=== PATIENT | male | born 1935 | race Caucasian/White ===

== ENCOUNTER 2018-12-01 13:08 | Inpatient (IN) | payer MEDICARE, BC ==
[2018-12-01] MEDS ORDERED: LIDOCAINE 1% INJ 10MG/ML (20 ML MDV) SQ ONE (13:30)
[2018-12-01] MEDS ORDERED: fentaNYL (PF) 50 MCG/ML 2 ML AMP IV ONE (13:30)
[2018-12-01] MEDS ORDERED: MIDAZOLAM 2 MG/2 ML VIAL IV ONE (13:32)
[2018-12-01] MEDS ORDERED: VERAPAMIL SYRINGE (5 MG/10 ML) INTRAARTER ONE (13:32)
[2018-12-01] MEDS ORDERED: BIVALIRUDIN BOLUS 250 MG/50 ML IV ONE ×2 (13:40→13:46)
[2018-12-01] MEDS ORDERED: CLOPIDOGREL 75 MG TAB PO ONE (13:44)
[2018-12-01] MEDS ORDERED: BIVALIRUDIN 250 MG in SODIUM CHLORIDE 0.9% 50 ML IV ONE (13:46)
[2018-12-01] MEDS ORDERED: IV FLUID CONTINUATION 1,000 ML IV ONE (13:48)
[2018-12-01] MEDS ORDERED: NITROGLYCERIN 1000MCG/10ML SYRINGE INTRACORON ONE (13:50)
[2018-12-01] MEDS ORDERED: IOPAMIDOL-370 100ML BTL INJ ONE ×2 (13:56→14:01)
[2018-12-01] MEDS ORDERED: MAG HYDROX/AL HYDROX/SIMETH 30 ML CUP PO PRN (14:19)
[2018-12-01] MEDS ORDERED: ZOLPIDEM 5 MG TAB PO PRN (14:19)
[2018-12-01] MEDS ORDERED: RX INFO: IV CONTRAST WAS GIVEN 1 EACH MISC MISCELLANE PRN (14:19)
[2018-12-01] MEDS ORDERED: NITROGLYCERIN SL TABS 0.4 MG TAB SUBLINGUAL PRN (14:19)
[2018-12-01] MEDS ORDERED: ATROPINE SULFATE 0.1 MG/ML 10ML SYRINGE IV PRN (14:19)
[2018-12-01 14:28] LABS: Glucose,Whole Blood 94 mg/dL (75-99)
[2018-12-01] MEDS ORDERED: SODIUM CHLORIDE 0.9% 1,000 ML IV SCH (14:30)
[2018-12-01 15:28] VITALS: BMI 25.1
--- NOTE | 2018-12-01 16:00 | CC ---
CARDIAC CATHETERIZATION REPORT Mr. Lenz is an 83-year-old male with a known history of hypertension who presented to [facility] with symptoms of chest discomfort and EKG changes anteriorly with mild elevation of troponin, consistent with non ST-segment elevation myocardial infarction. The patient has mild element of dementia. I had a long discussion in the morning with him and his daughter regarding the options of conservative versus aggressive approach. After our consultation with the family, the daughter decided to proceed with her intervention approach. In view of that, he was transferred to [facility] to undergo cardiac catheterization and angioplasty and stenting if needed. The procedures, risks and complication were discussed with the patient and his family. They were in full understanding and agreement. PROCEDURE: Patient was brought to the paving and surfacing labourer in a fasting semi-sedated state after receiving fentanyl and Benadryl and achieving moderate conscious sedated state. Using Xylocaine anesthesia and Seldinger technique, a 6-Yemeni sheath was introduced in the right radial artery. Selective right and left coronary angiography was performed using 5- Yemeni 3 and half bend right and left Mariama catheter and 6-Yemeni FL 3.5 guiding catheter. Images of the coronary arteries were obtained. The right Mariama catheter was used to cross the aortic valve and left ventricular end-diastolic pressure was calculated. Following that catheter and following the angioplasty, the catheter and sheath were removed. Hemostasis was obtained with deployment of an TR band. There was no immediate complication. Patient is returned to his room in stable condition. FINDINGS: FLUOROSCOPY: There was calcification involving the left anterior descending artery. CORONARY ANGIOGRAPHY: 1. Left main: This is a short size vessel bifurcating left circumflex, left anterior descending artery, left main coronary artery has no evidence of high-grade stenosis. 2. Left anterior descending artery: This is a large-sized vessel reaching toward the apex, tapers down distal third, giving rise to 2 diagonal branches. Right after the takeoff of the first septal sound equipment mechanic, there is a tubular lesion with stenosis up to 99%. Right at the takeoff of the first diagonal branch, there is a 30% plaque. The rest of the vessel has no high-grade stenosis. 3. Left circumflex: This is a nondominant vessel giving rise to a large obtuse marginal branch. The left circumflex has no evidence of high-grade stenosis. 4. RIGHT CORONARY ARTERY: This is a large dominant vessel bifurcating distally into PDA and posterolateral segment and branches. The right PDA has a 95% stenosis in the mid segment. The PDA extends into the inferoapical wall. LEFT VENTRICULOGRAM: Left ventriculogram was not performed. HEMODYNAMICS: There was no gradient across the aortic valve. The left ventricle end-diastolic pressure was 16 mmHg. CONCLUSION: 1. Critical stenosis involving the proximal mid segment of the LAD. 2. 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 RECOMMENDATION: In view of the findings and anatomy and the results of his EKG, I recommended proceeding with angioplasty and stenting of the LAD. The procedure as well as risks and complications were discussed with the patient who is in full understanding and agreement. MMODL / IJN: [id number] /
--- NOTE | 2018-12-01 16:12 | PTCA ---
PERCUTANEOUSTRANS CORORONARY ANGIOGRAPHY Mr. Lenz is an 83-year-old male who presented to [facility] with a non ST-segment elevation myocardial infarction with EKG changes in the anterior wall. He underwent cardiac catheterization, was found to have critical stenosis involving the proximal mid segment of the LAD. In view of that, recommendation was made regarding angioplasty and stenting. The procedures, risks and complication were discussed with the patient who is in full understanding and agreement. DESCRIPTION OF PROCEDURE: A 6-Stateless FL 3.5 guiding catheter in the system. After cannulating the left main, a 0.014 balanced medium weight J-wire was advanced across the lesion and positioned in the distal LAD. Following that, a 2.5 x 15 mm Trek balloon was advanced and two inflations at 8 atmospheres were done. Following that the balloon was removed and a export catheter was introduced and 1 run was done. Following that, catheters were removed and a 2.5 x 23 mm Xience Stella stent was advanced, deployed and post dilated at 16 atmospheres. After the last inflation, after appropriate wait, the balloon and the guidewire were withdrawn back in the guiding catheter. Images were obtained and repeated. Those images reveal stable successful stenting. At that point, the guiding catheter, the balloon and the guidewire were removed. The sheath was removed. Hemostasis was obtained with deployment of a TR band. There was no immediate complication. Patient is returned to his room in stable condition. Of note, the patient had chest discomfort and EKG changes that resulted in the procedure. He received Angiomax per protocol as well as oral loading dose of clopidogrel. RESULTS: Successful stenting of the proximal mid segment of the LAD with reduction of stenosis from 99% to 0%. RECOMMENDATION: Patient be continued on aspirin, Plavix, beta emmanuel, SILVA inhibitor and statin. Depending on his progress, he will need to be evaluated regarding the need to undergo stenting of the right PDA. Those findings and recommendation were discussed with the patient and his family and they are in understanding and agreement. Duration of procedure is 30 minutes. MMODL / IJN: [id number] /
[2018-12-01] MEDS ORDERED: HYDROcodone/APAP 10-325MG 1 EACH TAB PO PRN (17:07)
[2018-12-01] MEDS ORDERED: ACETAMINOPHEN TAB 325 MG TAB PO PRN (17:12)
[2018-12-01] MEDS ORDERED: LISINOPRIL 5 MG TAB PO STA (17:51)
[2018-12-01] MEDS: ATORVASTATIN 80 MG TAB PO SCH (19:57)
[2018-12-01] MEDS: METOPROLOL TARTRATE 25 MG TAB PO SCH (20:30)
[2018-12-02 05:31] LABS: Basophils % (A) 0 %; Eosinophils # (A) 0.7 k/uL (0-0.7); Eosinophils % (A) 7 %; HCT 41.3 % (39.0-53.0); HGB 13.6 gm/dL (13.0-17.5); Lymphocytes # (A) 1.5 k/uL (1.0-4.8); Lymphocytes % (A) 16 %; MCH 31.8 pg (25.0-35.0); MCV 96.4 fL (80.0-100.0); Mean Platelet Volume 10.7; Monocytes # (A) 0.7 k/uL (0-1.0); Monocytes % (A) 7 %; Neutrophils # (A) 6.5 k/uL (1.3-7.7); Neutrophils % (A) 67 %; Platelet Count 119 k/uL (150-450); RBC 4.29 m/uL (4.30-5.90); RDW 12.9 % (11.5-15.5); WBC 9.7 k/uL (3.8-10.6)
[2018-12-02 05:43] LABS: Anion Gap 5 mmol/L; Blood Urea Nitrogen 13 mg/dL (9-20); Calcium 9.2 mg/dL (8.4-10.2); Carbon Dioxide 22 mmol/L (22-30); Chloride 112 mmol/L (98-107); Cholesterol 151 mg/dL (<200); Glucose 93 mg/dL (74-99); HDL Cholesterol 39 mg/dL (40-60); LDL Cholesterol,Calculated 83 mg/dL (0-99); Potassium 4.1 mmol/L (3.5-5.1); Sodium 139 mmol/L (137-145); Triglycerides 146 mg/dL (<150)
[2018-12-02 06:19] LABS: Large Platelets Present
[2018-12-02] MEDS: PANTOPRAZOLE 40 MG TABLET PO SCH (08:18)
[2018-12-02] MEDS: ASPIRIN 81 MG PO SCH (08:18)
[2018-12-02] MEDS: CLOPIDOGREL 75 MG TAB PO SCH (08:18)
[2018-12-02] MEDS: METOPROLOL TARTRATE 25 MG TAB PO SCH ×2 (08:20→21:17)
[2018-12-02] MEDS: MEMANTINE 5 MG TAB PO SCH (08:20)
[2018-12-02] MEDS ORDERED: LISINOPRIL 5 MG TAB PO SCH (09:00)
[2018-12-02] MEDS ORDERED: MULTIVITAMINS, THERA 1 EACH TAB PO SCH (12:00)
--- NOTE | 2018-12-02 12:26 | PN ---
PROGRESS NOTE This is an 83-year-old gentleman who was admitted to hospital with non ST-segment elevation CT and ruled in for myocardial infarction. He has dementia, underwent cardiac catheterization and angioplasty of proximal LAD. Patient also has significant disease involving PDA which is going to be addressed after discharge. On exam today, heart rate is 70 beats per minute. Blood pressure is 150/94, respiratory rate is 18. Chest exam reveals good air entry bilaterally. Heart exam reveals first and second heart sounds. No gallop. Exam of extremities did not reveal any edema. Radial artery access site appears normal. Patient is on aspirin, Lipitor, Plavix, Lopressor, and Protonix. ASSESSMENT: Non ST-segment elevation myocardial infarction, status post stent of LAD. PLAN: Patient is doing well. I will increase the dose of lisinopril because of the uncontrolled hypertension. MMODL / IJN: [id number] /
--- NOTE | 2018-12-02 12:30 | P.HPIM ---
History of Present Illness H&P Date: 12/02/18 Chief Complaint: Chest pain This is an 83-year-old male patient of Dr. Hong with past medical history of mild dementia, DVT, gastroesophageal reflux disease, hypertension, hypercholesteremia, essential tremor, restless leg syndrome. Patient developed chest pain in the sternum radiating to the left arm. History for was slightly elevated and he was started on a heparin drip and cardiology consult was requested. Patient was transferred to [facility] for heart catheterization that revealed critical stenosis in the proximal mid segment of the LAD and severe disease in the right PDA. Patient then underwent successful stenting of the proximal mid segment of the LAD. Patient may require further evaluation and stenting of the PDA. Patient is seen in the intensive care unit has been cleared for transfer to the selective care unit. He denies having any chest pain, shortness of breath. Patient's is at the bedside. Lab work in [facility] revealed troponin 0.338, triglycerides 77, cholesterol 164, HDL 44, LDL 105. Chest x-ray showed no acute disease. Review of Systems All systems: negative Constitutional: Denies anorexia, Denies chills, Denies fatigue, Denies fever, Denies lethargy, Denies malaise, Denies poor appetite, Denies weakness Eyes: denies blurred vision, denies pain Ears, nose, mouth and throat: Denies headache, Denies sore throat Cardiovascular: Reports chest pain, Denies dyspnea on exertion, Denies edema, Denies lightheadedness, Denies shortness of breath, Denies syncope Respiratory: Denies cough, Denies cough with sputum, Denies dyspnea, Denies excessive sputum, Denies hemoptysis, Denies home oxygen, Denies wheezing Gastrointestinal: Denies abdominal pain, Denies diarrhea, Denies loss of appetite, Denies nausea, Denies vomiting Genitourinary: Denies dysuria, Denies urinary retention Musculoskeletal: Denies frequent falls, Denies gait dysfunction, Denies myalgias Integumentary: Denies pruritus, Denies rash, Denies wounds Neurological: Reports confusion, Denies aphasia, Denies change in mentation, Denies gait dysfunction, Denies numbness, Denies seizures, Denies weakness Psychiatric: Denies anxiety, Denies depression Endocrine: Denies fatigue, Denies weight change Past Medical History Past Medical History: Dementia, Deep Vein Thrombosis (DVT), Eye Disorder, GERD/Reflux, Myocardial Infarction (OR), Pneumonia Additional Past Medical History / Comment(s): DVT in legs, cateract removed right eye, restless leg syndrome. Last Myocardial Infarction Date:: 12/01/18 History of Any Multi-Drug Resistant Organisms: None Reported Past Surgical History: Heart Catheterization With Stent, Hernia Repair, Joint Re placement, Orthopedic Surgery Additional Past Surgical History / Comment(s): Bilat knee replacement, rotator cuff surgery Past Anesthesia/Blood Transfusion Reactions: No Reported Reaction Date of Last Stent Placement:: 12/01/18 Past Psychological History: No Psychological Hx Reported Smoking Status: Former smoker Past Alcohol Use History: Daily Additional Past Alcohol Use History / Comment(s): Takes 4oz alcohol daily at [facility] to sleep Past Drug Use History: Marijuana Additional Drug Use History / Comment(s): medical merijuana use occasionally for restless leg syndrome. - Past Family History Brother(s) Family Medical History: Cancer Father History Unknown: Yes Medications and Allergies Home Medications Medication Instructions Recorded Confirmed Type Aspirin 325 mg PO DAILY 12/01/18 12/01/18 History Atenolol [Tenormin] 25 mg PO DAILY 12/01/18 12/01/18 History HYDROcodone/APAP 10-325MG [[place] 1 tab PO DIRECTED PRN 12/01/18 12/01/18 History 10-325] Memantine HCl [Memantine HCl ER] 21 mg PO DAILY 12/01/18 12/01/18 History Multivitamin,Therapeutic [Thera] 1 tab PO DAILY 12/01/18 12/01/18 History Omeprazole 20 mg PO DAILY PRN 12/01/18 12/01/18 History Vitamin A 8,000 unit PO DAILY 12/01/18 12/01/18 History Vitamin E 1,000 unit PO DAILY 12/01/18 12/01/18 History rOPINIRole HCL [Requip] 1 mg PO BID@1200,1630 12/01/18 12/01/18 History rOPINIRole HCL [Requip] 2 mg PO HS@2130 12/01/18 12/01/18 History Allergies Allergy/AdvReac Type Severity Reaction Status Date / Time No Known Allergies Allergy Verified 12/01/18 16:29 Physical Exam Vitals: Vital Signs Temp Pulse Resp BP Pulse Ox 12/02/18 09:00 74 17 155/72 94 L 12/02/18 08:00 97.6 F 73 20 153/77 94 L 12/02/18 07:00 68 21 135/70 94 L 12/02/18 06:30 69 16 117/64 94 L 12/02/18 06:00 60 15 130/65 92 L 12/02/18 05:30 73 16 103/70 94 L 12/02/18 05:00 68 15 120/57 94 L 12/02/18 04:30 62 13 113/41 12/02/18 04:00 98 F 70 16 107/52 95 12/02/18 03:30 66 19 119/60 94 L 12/02/18 03:06 20 12/02/18 03:00 71 20 132/61 93 L 12/02/18 02:30 79 27 H 122/52 93 L 12/02/18 02:00 67 21 117/53 94 L 12/02/18 01:30 65 20 138/58 93 L 12/02/18 01:00 66 19 135/64 94 L 12/02/18 00:30 72 21 117/57 94 L 12/02/18 00:29 71 11 L 117/57 94 L 12/02/18 00:00 98.8 F 65 16 115/57 93 L 12/01/18 23:30 62 17 155/86 93 L 12/01/18 23:00 75 16 149/91 97 12/01/18 22:30 68 14 166/82 96 12/01/18 22:00 75 12 165/126 93 L 12/01/18 21:30 78 16 169/84 96 12/01/18 21:00 76 20 168/76 94 L 12/01/18 20:30 64 18 174/81 94 L 12/01/18 20:00 97.5 F L 70 21 169/86 96 12/01/18 19:30 72 11 L 157/72 99 12/01/18 19:00 71 19 111/81 93 L 12/01/18 18:30 76 13 142/100 94 L 12/01/18 18:00 68 12 149/90 95 12/01/18 17:45 76 23 177/98 94 L 12/01/18 17:30 66 11 L 162/68 98 04/14/19 17:15 70 24 162/68 95 12/01/18 17:00 60 19 102/87 96 12/01/18 16:45 97.6 F 64 12 167/68 95 12/01/18 16:30 64 12 181/76 94 L 12/01/18 16:15 59 L 12 175/101 12/01/18 16:00 61 17 186/85 12/01/18 15:45 61 20 136/89 95 12/01/18 15:30 60 13 180/91 96 12/01/18 15:15 61 13 186/86 95 12/01/18 15:00 64 19 173/81 95 12/01/18 14:45 60 50 H 155/82 95 12/01/18 14:30 97.8 F 66 22 181/78 12/01/18 14:26 61 26 H Intake and Output 12/01/18 12/02/18 12/02/18 22:59 06:59 14:59 Intake Total 1280 300 250 Output Total 1250 0 350 Balance 30 300 -100 Intake: IV 800 300 0 Sodium Chloride 0.9% 1, 800 300 0 000 ml @ 100 mls/hr IV . Q10H CHRISTIAN Rx#:[id number] Oral 480 250 Output: Urine 1250 0 350 Other: Voiding Method Urinal Urinal Urinal # Voids 1 0 1 # Bowel Movements 1 Gen: This is an 83-year-old male. He is sitting in recliner and appears to be comfortable and in no acute distress. HEENT: Head is atraumatic, normocephalic. Pupils equal, round. Sclerae is anicte elicia. NECK: Supple. No JVD. No lymphadenopathy. No thyromegaly. LUNGS: Clear to auscultation. No wheezes or rhonchi. No intercostal retractions. HEART: Regular rate and rhythm. No murmur. ABDOMEN: Soft. Bowel sounds are present. No masses. No tenderness. EXTREMITIES: No pedal edema. No calf tenderness. Right radial heart catheterization site without hematoma. NEUROLOGICAL: Patient is awake, alert and oriented x3. Cranial nerves 2 through 12 are grossly intact. Results CBC & Chem 7: 12/02/18 05:19 12/02/18 05:19 Labs: Abnormal Lab Results - Last 24 Hours (Table) 12/02/18 12/02/18 Range/Units 05:19 05:19 RBC 4.29 L (4.30-5.90) m/uL Plt Count 119 L (150-450) k/uL Chloride 112 H (98-107) mmol/L HDL Cholesterol 39 L (40-60) mg/dL Thrombosis Risk Factor Assmnt - DVT/VTE Prophylaxis DVT/VTE Prophylaxis: Pharmacologic Prophylaxis ordered - Choose All That Apply Any of the Below Risk Factors Present?: Yes Each Factor Represents 1 point: Acute OR Each Risk Factor Represents 3 Points: Age 75 years or older Thrombosis Risk Factor Assessment Total Risk Factor Score: 4 Thrombosis Risk Factor Assessment Level: Moderate Risk Assessment and Plan Plan: 1. Non-ST elevated myocardial infarction status post heart catheterization stenting of the proximal mid segment of the LAD. Patient may require further evaluation and stenting of the PDA. Continue aspirin 81 mg daily Lipitor 80 mg daily, Plavix 75 mg daily, Lopressor 25 mg twice daily. Transferred to the cardiac stepdown unit. 2. Hypertension. Continue Lopressor, lisinopril 10 mg daily. 3. Hyperlipidemia. Continue atorvastatin. 4. Restless leg syndrome. Continue Requip 1 mg twice daily and 2 mg at bedtime. 5. Dementia, patient is at his baseline mentation. Continue Namenda. 6. Gastroesophageal reflux disease. Continue Protonix. 7. DVT prophylaxis. YUSUF miller and SHANEs. Patient will be admitted to the hospital for a minimum of 2 night stay. Discharge plan: Home in the next 24 hours Impression and plan of care have been directed as dictated by the signing physician. Glenna Goodrich nurse practitioner acting as scribe for signing physician.
[2018-12-02] MEDS: ATORVASTATIN 80 MG TAB PO SCH (20:53)
[2018-12-02] MEDS ORDERED: MEMANTINE 10 MG TAB PO SCH (21:00)
[2018-12-03 05:52] LABS: HCT 41.6 % (39.0-53.0); HGB 14.1 gm/dL (13.0-17.5); MCH 32.5 pg (25.0-35.0); MCHC 33.9 g/dL (31.0-37.0); MCV 95.9 fL (80.0-100.0); Mean Platelet Volume 11.7; Platelet Count 120 k/uL (150-450); RBC 4.34 m/uL (4.30-5.90); RDW 13.8 % (11.5-15.5); WBC 9.6 k/uL (3.8-10.6)
[2018-12-03 06:13] LABS: Anion Gap 6 mmol/L; Blood Urea Nitrogen 16 mg/dL (9-20); Calcium 9.3 mg/dL (8.4-10.2); Carbon Dioxide 24 mmol/L (22-30); Chloride 109 mmol/L (98-107); Glucose 91 mg/dL (74-99); Sodium 139 mmol/L (137-145)
[2018-12-03 06:42] LABS: Eosinophils # (M) 0.86 k/uL (0-0.7); Large Platelets Present; Lymphocytes # (M) 1.73 k/uL (1.0-4.8); Monocytes # (M) 0.77 k/uL (0-1.0); Neutrophils # (M) 6.24 k/uL (1.3-7.7); Neutrophils % (M) 65 %; Nucleated Red Blood Cells 0 /100 WBC (0-0); Total Cells Counted 100
[2018-12-03] MEDS: PANTOPRAZOLE 40 MG TABLET PO SCH (07:04)
[2018-12-03] MEDS: CLOPIDOGREL 75 MG TAB PO SCH (08:23)
[2018-12-03] MEDS: ASPIRIN 81 MG PO SCH (08:23)
[2018-12-03] MEDS: MEMANTINE 5 MG TAB PO SCH (08:24)
[2018-12-03] MEDS: METOPROLOL TARTRATE 25 MG TAB PO SCH (08:24)
--- NOTE | 2018-12-03 08:31 | P.DS ---
Providers Date of admission: 12/01/18 13:22 Expected date of discharge: 12/03/18 Attending physician: Torito Hong Consults: 12/01/18 14:19 Consult Physician Routine Consulting Provider: [facility] Consult Reason/Comments: Post Interventional patient Do you want consulting provider notified?: Already Contacted Placement Type Exists?: Yes Primary care physician: Stated None Hospital Course: This is an 83-year-old male patient of Dr. Hong with past medical history of mild dementia, DVT, gastroesophageal reflux disease, hypertension, hypercholesteremia, essential tremor, restless leg syndrome. Patient developed chest pain in the sternum radiating to the left arm. History for was slightly elevated and he was started on a heparin drip and cardiology consult was requested. Patient was transferred to [facility] for heart catheterization that revealed critical stenosis in the proximal mid segment of the LAD and severe disease in the right PDA. Patient then underwent successful stenting of the proximal mid segment of the LAD. Patient may require further evaluation and stenting of the PDA. Patient is seen in the intensive care unit has been cleared for transfer to the selective care unit. He denies having any chest pain, shortness of breath. Patient's is at the bedside. Lab work in [facility] revealed troponin 0.338, triglycerides 77, cholesterol 164, HDL 44, LDL 105. Chest x-ray showed no acute disease. 12/03: Patient is seen in the intensive care unit. He remains pain-free. He denies any shortness of breath. Patient has been ambulating in the hallway now with no difficulty. No lightheadedness or dizziness. He has been afebrile, heart rate in the 60s, blood pressure 141/65, pulse ox 95% on room air. Patient has been in a sinus rhythm. No problems overnight. Patient and family are anxious to go home. Patient will be discharged home today in stable condition. Follow up with Dr. Arroyo and Dr. Hong. Discharge diagnoses: 1. Non-ST elevated myocardial infarction status post heart catheterization stenting of the proximal mid segment of the LAD. Patient may require further evaluation and stenting of the PDA. 2. Hypertension. 3. Hyperlipidemia. 4. Restless leg syndrome. 5. Dementia, patient is at his baseline mentation. 6. Gastroesophageal reflux disease. . Discharge plan: Home Impression and plan of care have been directed as dictated by the signing physician. Glenna Goodrich nurse practitioner acting as scribe for signing ph ysician. Patient Condition at Discharge: Good Plan - Discharge Summary Discharge Rx Participant: No New Discharge Prescriptions: New Aspirin 81 mg PO DAILY chew Atorvastatin [Lipitor] 80 mg PO HS #30 tab Metoprolol Tartrate [Lopressor] 25 mg PO BID #60 tab Nitroglycerin Sl Tabs [Nitrostat] 0.4 mg SUBLINGUAL Q5M PRN #25 tab PRN Reason: Chest Pain Clopidogrel [Plavix] 75 mg PO DAILY #30 tab Lisinopril [Zestril] 10 mg PO DAILY #30 tab Continue HYDROcodone/APAP 10-325MG [[place] 10-325] 1 tab PO DIRECTED PRN PRN Reason: Pain Memantine HCl [Memantine HCl ER] 21 mg PO DAILY rOPINIRole HCL [Requip] 2 mg PO HS@2130 rOPINIRole HCL [Requip] 1 mg PO BID@1200,1630 Vitamin E 1,000 unit PO DAILY Vitamin A 8,000 unit PO DAILY Omeprazole 20 mg PO DAILY PRN PRN Reason: Gi Upset Multivitamin,Therapeutic [Thera] 1 tab PO DAILY Discontinued Atenolol [Tenormin] 25 mg PO DAILY Aspirin 325 mg PO DAILY Discharge Medication List HYDROcodone/APAP 10-325MG [[place] 10-325] 1 tab PO DIRECTED PRN 12/01/18 [History] Memantine HCl [Memantine HCl ER] 21 mg PO DAILY 12/01/18 [History] Multivitamin,Therapeutic [Thera] 1 tab PO DAILY 12/01/18 [History] Omeprazole 20 mg PO DAILY PRN 12/01/18 [History] Vitamin A 8,000 unit PO DAILY 12/01/18 [History] Vitamin E 1,000 unit PO DAILY 12/01/18 [History] rOPINIRole HCL [Requip] 1 mg PO BID@1200,1630 12/01/18 [History] rOPINIRole HCL [Requip] 2 mg PO HS@2130 12/01/18 [History] Aspirin 81 mg PO DAILY chew 12/03/18 [Rx] Atorvastatin [Lipitor] 80 mg PO HS #30 tab 12/03/18 [Rx] Clopidogrel [Plavix] 75 mg PO DAILY #30 tab 12/03/18 [Rx] Lisinopril [Zestril] 10 mg PO DAILY #30 tab 12/03/18 [Rx] Metoprolol Tartrate [Lopressor] 25 mg PO BID #60 tab 12/03/18 [Rx] Nitroglycerin Sl Tabs [Nitrostat] 0.4 mg SUBLINGUAL Q5M PRN #25 tab 12/03/18 [Rx] Follow up Appointment(s)/Referral(s): Gala Arroyo MD [STAFF PHYSICIAN] - 1 Week Torito Hong MD [Medical Doctor] - 1 Week Discharge Disposition: HOME SELF-CARE
[2018-12-03] MEDS ORDERED: LISINOPRIL 10 MG TAB PO SCH (09:00)
[2018-12-03 10:05] VITALS: BP 133/71; PULSE 81; RESP 17; TEMP 97.7
--- NOTE | 2018-12-03 11:02 | PN ---
PROGRESS NOTE This is an 83-year-old gentleman who was admitted to hospital with non ST-segment elevation CT. Underwent cardiac catheterization and angioplasty. This morning he is doing well and is free of symptoms and he is ready to be discharged home. Patient has a lesion in the PDA which is going to be addressed in the outpatient setting. On exam, comfortable at rest. Vital signs are stable. Chest exam reveals good air entry bilaterally. Heart exam reveals first and second heart sounds. No gallop. Examination of extremities did not reveal any edema. Labs show a hemoglobin of 14.1, platelet count is 120, potassium is 4, creatinine is 0.9. Discharge medications include aspirin, Lipitor, Plavix, Zestril, Lopressor, and sublingual nitroglycerin. The patient will be followed up in our office in a week's time and patient will be scheduled for angioplasty of the PDA. MMNALLELY / MARISSA: [id number] /
--- NOTE | 2018-12-06 09:09 | ECHOF ---
Referral Reason:nm MEASUREMENTS -------- HEIGHT: 175.3 cm WEIGHT: 77.1 kg BP: RVIDd: 3.2 cm (< 3.3) IVSd: 1.4 cm (0.6 - 1.1) LVIDd: 3.2 cm (3.9 - 5.3) LVPWd: 1.3 cm (0.6 - 1.1) IVSs: 1.5 cm LVIDs: 2.7 cm LVPWs: 1.2 cm LAESV Index (A-L): 30.80 ml/m Ao Diam: 3.1 cm (2.0 - 3.7) AV Cusp: 1.7 cm (1.5 - 2.6) LA Diam: 3.5 cm (2.7 - 3.8) MV EXCURSION: 20.130 mm (> 18.000) MV EF SLOPE: 74 mm/s (70 - 150) EPSS: 0.4 cm MV E Gerardo: 0.58 m/s MV DecT: 372 ms MV A Gerardo: 0.88 m/s MV E/A Ratio: 0.66 AR PHT: 1029 ms RAP: 5.00 mmHg RVSP: 35.07 mmHg FINDINGS -------- Sinus rhythm. This was a technically good study. LV size, wall thickness and systolic function are normal, with an EF greater than 55%. The left oliverio tricular size is normal. The right ventricle is normal in size. The left atrial size is normal. The right atrial size is normal. There is mild aortic valve sclerosis. Trace to mild aortic regurgitation. Mild mitral annular calcification present. Mild mitral regurgitation is present. Mild tricuspid regurgitation present. There is mild pulmonary hypertension. The right ventricular systolic pressure, as measured by Doppler, is 35.07mmHg. There is no pulmonic regurgitation present. The aortic root size is normal. There is no pericardial effusion. CONCLUSIONS -------- 1. LV size, wall thickness and systolic function are normal, with an EF greater than 55%. 2. The left ventricular size is normal. 3. The right ventricle is normal in size. 4. The left atrial size is normal. 5. The right atrial size is normal. 6. There is mild aortic valve sclerosis. 7. Trace to mild aortic regurgitation. 8. Mild mitral annular calcification present. 9. Mild mitral regurgitation is present. 10. Mild tricuspid regurgitation present. 11. There is mild pulmonary hypertension. 12. The right ventricular systolic pressure, as measured by Doppler, is 35.07mmHg. 13. There is no pulmonic regurgitation present. 14. The aortic root size is normal. 15. There is no pericardial effusion. HEALTH CARE SANITARY TECHNICIAN: Yadira Lucas RDCS
== END 2018-12-03 11:57 | disposition home or self-care (01) | DRG 247 ==
LOC: 3SCARD 13:22 → 2SICU 14:09
PROVIDERS: ADMIT Internal Medicine Geriatric Medicine; ATTEND Internal Medicine Geriatric Medicine
PROC: 027034Z Dilation of Coronary Artery, One Artery with Drug-eluting Intraluminal Device, Percutaneous Approach (ICD-10-PCS; principal; 2018-12-01 13:11)
PROC: B2111ZZ Fluoroscopy of Multiple Coronary Arteries using Low Osmolar Contrast (ICD-10-PCS; 2018-12-01 13:11)
PROC: 4A023N7 Measurement of Cardiac Sampling and Pressure, Left Heart, Percutaneous Approach (ICD-10-PCS; 2018-12-01 13:11)
DX: I21.4 Non-ST elevation (NSTEMI) myocardial infarction (principal); E78.5 Hyperlipidemia, unspecified; E78.00 Pure hypercholesterolemia, unspecified; F03.90 Unspecified dementia, unspecified severity, without behavioral disturbance, psychotic disturbance, mood disturbance, and anxiety; G25.81 Restless legs syndrome; I10 Essential (primary) hypertension; Z96.653 Presence of artificial knee joint, bilateral; G25.0 Essential tremor; K21.9 Gastro-esophageal reflux disease without esophagitis; Z79.02 Long term (current) use of antithrombotics/antiplatelets; I25.2 Old myocardial infarction; Z79.899 Other long term (current) drug therapy; Z86.718 Personal history of other venous thrombosis and embolism; Z87.891 Personal history of nicotine dependence; Z87.01 Personal history of pneumonia (recurrent); Z98.41 Cataract extraction status, right eye; Z98.890 Other specified postprocedural states; Z80.9 Family history of malignant neoplasm, unspecified
CPT/HCPCS: 80048; 80061; 85025; 93306; 93458; 93799; C1874

== ENCOUNTER → 2019-01-01 | Outpatient (CLI) | payer MEDICARE, BC ==
--- NOTE | 2019-01-01 14:57 | XR ---
EXAMINATION TYPE: XR lumbar spine 2 or 3V DATE OF EXAM: 01/01/2019 CLINICAL HISTORY: Acute and chronic increasing low back pain for 3 to 4 weeks with no known injury. TECHNIQUE: Frontal and lateral images of the lumbar spine are obtained. COMPARISON: MRI dated 08/17/2015 FINDINGS: There are 5 lumbar type vertebral bodies identified. The lumbar spine shows satisfactory alignment. However there is mild compression deformity of the L1 vertebral body not seen on the prior MRI of 08/17/2015. This has vertebral body height loss of approximately 30% without retropulsion. Th ere is also grade 1 anterolisthesis of L5 on S1 secondary to bilateral pars interarticularis defects as seen on the prior 2014. No new malalignment is present. Severe facet arthropathy is seen at L5-S1 and to a lesser degree of the lower lumbar spine. Mild atherosclerosis of the abdominal aorta is note d. Diffuse osseous demineralization is seen. Moderate fecal stasis in the visualized colon. IMPRESSION: 1. There is a mild compression deformity of the L1 vertebral body with vertebral body height loss of approximately 30%. Although this is age indeterminate this was not seen on the prior MRI dated 2014. 2. Persistent grade 1 anterolisthesis of L5 on S1 secondary to bilateral pars interarticularis defect s. 3. Severe facet arthropathy at L5-S1 and to a lesser degree of the lumbar spine. Note the spinal jairo l stenosis seen on the prior MRI 2014 cannot be evaluated on x-ray. Progression could be evaluated wi th MRI.
== END | disposition home or self-care (01) ==
LOC: RADXRYALE 13:55
PROVIDERS: ATTEND Internal Medicine Geriatric Medicine
DX: M43.17 Spondylolisthesis, lumbosacral region (principal); M46.96 Unspecified inflammatory spondylopathy, lumbar region; M46.97 Unspecified inflammatory spondylopathy, lumbosacral region; M43.8X6 Other specified deforming dorsopathies, lumbar region
CPT/HCPCS: 72100

== ENCOUNTER → 2022-08-22 | Outpatient (CLI) | payer MEDICARE, BC ==
--- NOTE | 2022-08-22 12:16 | XR ---
EXAMINATION TYPE: XR chest 2V DATE OF EXAM: 08/22/2022 COMPARISON: NONE HISTORY: Cough. TECHNIQUE: Frontal and lateral views of the chest are obtained. FINDINGS: Reticular interstitial changes bilaterally. More focal increased opacity in the left grea ter than right lung bases and the inferior right upper lobe. No pleural effusion or pneumothorax seen bilaterally. The cardiac silhouette size is mildly enlarged. Underlying dextroconvex scoliosis is se en. Cholecystectomy clips are noted. IMPRESSION: Mild cardiomegaly. Suspected chronic parenchymal changes. Patchy right upper lobe and le ft greater than right bibasilar acute infiltrates are suspected. Progress study advised.
== END | disposition home or self-care (01) ==
LOC: RADXRYALE 11:39
PROVIDERS: ATTEND Internal Medicine Geriatric Medicine
DX: I51.7 Cardiomegaly (principal); R05.9 Cough, unspecified
CPT/HCPCS: 71046

== ENCOUNTER 2022-09-04 23:17 | Inpatient (IN) | payer MEDICARE, BC ==
[2022-09-04] MEDS ORDERED: IBUPROFEN 800 MG TAB PO STA (23:48)
--- NOTE | 2022-09-05 01:01 | XR ---
EXAMINATION TYPE: XR chest 2V DATE OF EXAM: 09/05/2022 COMPARISON: NONE HISTORY: Difficulty breathing TECHNIQUE: 2 views FINDINGS: There is some airspace patchy consolidation right upper lobe. There is a similar infiltrate left lower lobe. There is mild pulmonary congestion. Heart size is top normal. Thoracic aorta is ath eromatous. There is slight blunting of the costophrenic angles. IMPRESSION: Bilateral pneumonia. Mild heart failure not excluded.
[2022-09-05 01:10] LABS: Basophils % (A) 0 %; Eosinophils # (A) 0.2 k/uL (0-0.7); Eosinophils % (A) 2 %; HCT 29.5 % (39.0-53.0); HGB 9.9 gm/dL (13.0-17.5); Lymphocytes % (A) 6 %; MCH 32.7 pg (25.0-35.0); MCHC 33.5 g/dL (31.0-37.0); MCV 97.6 fL (80.0-100.0); Mean Platelet Volume 10.3; Monocytes # (A) 0.8 k/uL (0-1.0); Monocytes % (A) 5 %; Neutrophils % (A) 86 %; Platelet Count 199 k/uL (150-450); RBC 3.03 m/uL (4.30-5.90); RDW 12.4 % (11.5-15.5); WBC 16.3 k/uL (3.8-10.6)
[2022-09-05 01:22] LABS: Albumin 2.8 g/dL (3.5-5.0); Calcium 9.1 mg/dL (8.4-10.2); Magnesium 2.1 mg/dL (1.6-2.3); Total Bilirubin 0.6 mg/dL (0.2-1.3); Total Protein 6.2 g/dL (6.3-8.2)
[2022-09-05 01:31] LABS: INR 1.2 (<1.2); Partial Thromboplastin Time 26.3 sec (22.0-30.0); Prothrombin Time 12.5 sec (9.0-12.0)
[2022-09-05] MEDS ORDERED: SODIUM CHLORIDE 0.9% 1,000 ML IV STA (01:42)
--- NOTE | 2022-09-05 02:38 | ED ---
General Adult HPI - General Chief complaint: Shortness of Breath Stated complaint: [place] Time Seen by Provider: 09/04/22 23:28 Source: patient, family, EMS, RN notes reviewed, old records reviewed Mode of arrival: EMS Limitations: no limitations - History of Present Illness Initial comments: Patient is an 87-year-old male with past medical history remarkable for dementia, prior cardiac disease, chronic lower extremity swelling, prior heavy alcohol use who presents emergency Department with progressively worsening dyspnea, upper respiratory symptoms. Patient was diagnosed with Covid the Sunday before . Is currently September 05. Since that time, patient has waxed and waned in terms of symptoms, however over the last week or so he seems to progressively gotten worse after he completed a course of doxycycline. He is having a productive cough of a greenish mucus. No fevers but decreased appetite, oral intake, fluid intake. He has had a sore throat as well. No nausea or vomiting. No diarrhea. No abdominal pain, chest pain. No other acute complaints at this time. Patient's also had Covid. Patient's daughter brings the patient in for further evaluation at this time. No history of blood clots. No known history of CHF. History of dependent edema.Patient was hypoxic a few weeks ago at home but per patient's daughter, oxygen levels have been in the mid 90s since.Patient complains of a sore throat as well as right ear pain. - Related Data Home Medications Medication Instructions Recorded Confirmed HYDROcodone/APAP 10-325MG [[place] 1 tab PO DIRECTED PRN 12/01/18 12/01/18 10-325] Memantine HCl [Memantine HCl ER] 21 mg PO DAILY 12/01/18 12/01/18 Multivitamin,Therapeutic [Thera] 1 tab PO DAILY 12/01/18 12/01/18 Omeprazole 20 mg PO DAILY PRN 12/01/18 12/01/18 Vitamin A [Vitamin A (8,000 Units 8,000 unit PO DAILY 12/01/18 12/01/18 = 2,400 MCG)] Vitamin E (Dl,Tocopheryl Acet) 1,000 unit PO DAILY 12/01/18 12/01/18 [Vitamin E] rOPINIRole HCL [Requip] 1 mg PO BID@1200,1630 12/01/18 12/01/18 rOPINIRole HCL [Requip] 2 mg PO HS@2130 12/01/18 12/01/18 Previous Rx's Medication Instructions Recorded Aspirin 81 mg PO DAILY chew 12/03/18 Atorvastatin [Lipitor] 80 mg PO HS #30 tab 12/03/18 Clopidogrel [Plavix] 75 mg PO DAILY #30 tab 12/03/18 Metoprolol Tartrate [Lopressor] 25 mg PO BID #60 tab 12/03/18 Nitroglycerin Sl Tabs [Nitrostat] 0.4 mg SUBLINGUAL Q5M PRN #25 tab 12/03/18 lisinopriL [Zestril] 10 mg PO DAILY #30 tab 12/03/18 Allergies Allergy/AdvReac Type Severity Reaction Status Date / Time No Known Allergies Allergy Verified 09/04/22 23:43 Review of Systems ROS Statement: Those systems with pertinent positive or pertinent negative responses have been documented in the HPI. Review of Systems: CONST: Denies fever EYES: Denies blurry vision ENT: Endorses nasal congestion C/V: Denies Chest pain RESP: Endorses cough, shortness of breath GI: Denies abdominal pain : Denies dysuria SKIN: Denies rash. MSK: Denies joint pain. NEURO: Denies headache ROS Other: All systems not noted in ROS Statement are negative. Past Medical History Past Medical History: Dementia, Deep Vein Thrombosis (DVT), Eye Disorder, GERD/Reflux, Myocardial Infarction ([place]), Pneumonia Additional Past Medical History / Comment(s): DVT in legs, cateract removed right eye, restless leg syndrome. Last Myocardial Infarction Date:: 12/01/18 History of Any Multi-Drug Resistant Organisms: None Reported Past Surgical History: Heart Catheterization With Stent, Hernia Repair, Joint Replacement, Orthopedic Surgery Additional Past Surgical History / Comment(s): Bilat knee replacement, rotator cuff surgery Past Anesthesia/Blood Transfusion Reactions: No Reported Reaction Date of Last Stent Placement:: 12/01/18 Past Psychological History: No Psychological Hx Reported Past Alcohol Use History: Daily Past Drug Use History: Marijuana - Past Family History Brother(s) Family Medical History: Cancer Father History Unknown: Yes General Exam - General Exam Comments Initial Comments: General: Appears dehydrated. HEAD: Normal with no signs of head trauma. EYES: PERRLA, EOMI, conjunctiva normal, no discharge. ENT: Hearing grossly intact, normal oropharynx. Mucous membranes appear mostly moist. RESPIRATORY: Rhonchi bilaterally. Hypoxic on room air improved on 2 L nasal cannula. No increased work of breathing. C/V: Regular rate and rhythm. S1 and S2 auscultated, chronic lower extremity symmetrical edema, peripheral pulses 2+ and intact throughout ABD: Abd is soft, nontender, nondistended EXT: Normal range of motion, no obvious deformity SKIN: No rashes or lesions observed on exposed skin. NEURO: Alert and oriented 2-3. Currently at his baseline per patient's daughter. Limitations: no limitations Course Vital Signs 09/04/22 09/05/22 09/05/22 23:43 01:52 01:54 Temperature 98.6 F Pulse Rate 103 H 90 91 Respiratory 17 16 16 Rate Blood Pressure 127/77 O2 Sat by Pulse 95 88 L 97 Oximetry Medical Decision Making - Medical Decision Making Based on the patient's presentation and physical exam, I'm concerned for worsening pneumonia for the patient but cannot rule out other etiology at this time, particularly with the recent COVID-19 infection I cannot rule out a PE. We will obtain cardiopulmonary laboratory studies as well as infectious labs. Chest x-ray and EKG will be obtained. Vital signs within acceptable limits other than the hypoxia which is improved on 2 L nasal cannula. Patient does have mildly soft blood pressures but has systemic symptoms including shortness of breath and lower extremity edema of CHF and therefore we will hold off on IV fluids at this time but closely monitored. Patient's family was in agreement this plan. EKG showed no signs of acute ischemia. Chest x-ray revealed findings concerning for multifocal pneumonia versus possible heart failure. Lavatory studies were remarkable for a leukocytosis of 16. Patient has a normocytic anemia of 9.9. Patient is an elevated d-dimer of 19.77. Patient is a mild AK eye with a crea tinine of 1.3 and BUN of 37. Troponin is elevated to 0.257. BNP is within acceptable limits. COVID-19 is positive, the patient is negative for flu and RSV and strep. CT angiogram for PE was obtained due to the elevated dimer was negative for PE but does show the bilateral pneumonia. I updated the patient's daughter. At this point patient is receiving his second liter fluid and we will continue with fluid hydration as it does not appear that he is in heart failure. Patient will be started on IV Levaquin as well as IV azithromycin for failed outpatient management of pneumonia. We'll continue supplemental oxygenation. Patient's family was in agreement this plan. Patient was in agreement this plan. He will be admitted at this time. Patient's troponin elevation is likely secondary to his dehydration as well as his underlying infection as well as underlying hypoxia at home. I do not have suspicion for ACS at this time. EKG shows no signs of ischemic change. We will trend the troponin which I anticipate will improve with treatment of his pneumonia as well as his dehydration and ANGELA. He will be given an aspirin at this time. I discussed the case with the admitting team, JOSTIN Ceron of [facility] who accepted the patient. She was in agreement this plan. Cardiology will be consulted for the elevated troponin which is likely secondary to the underlying infectious process. Was pt. sent in by a medical professional or institution (, PA, QUENCHING CAR OPERATOR, urgent care, hospital, or shelter...) When possible be specific @ -No Did you speak to anyone other than the patient for history (EMS, parent, family, police, friend...)? What history was obtained from this source @ -Yes. Patient's daughter is at bedside and provides most of the history. Did you review nursing and triage notes (agree or disagree)? Why? @ -I reviewed and agree with nursing and triage notes Were old charts reviewed (outside hosp., previous admission, EMS record, old EKG, old radiological studies, urgent care reports/EKG's, shelter records)? Report findings @ -Yes. Old charts and EKGs were reviewed. Differential Diagnosis (chest pain, altered mental status, abdominal pain women, abdominal pain men, vaginal bleeding, weakness, fever, dyspnea, syncope, headache, dizziness, GI bleed, back pain, seizure, CVA, palpatations, mental health)? @ -Differential Dyspnea: Coronary syndrome, arrhythmia, tamponade, asthma, COPD, pulmonary embolism, pneumonia, pneumothorax, pulmonary effusion, anaphylaxis, diabetic ketoacidosis, flailed chest, pulmonary contusion, diaphragmatic rupture, anemia, neuromuscular, this is not meant to be an all-inclusive list. EKG interpreted by me (3pts min.). @ -As above X-rays interpreted by me (1pt min.). @ -Chest x-ray showed findings concerning for bilateral pneumonia versus heart failure CT interpreted by me (1pt min.). @ -CT PE shows no evidence of pulmonary embolism but redemonstration of bilateral pneumonia. U/S interpreted by me (1pt. min.). @ -None done What testing was considered but not performed or refused? (CT, X-rays, U/S, labs)? Why? @ -None What meds were considered but not given or refused? Why? @ -None Did you discuss the management of the patient with other professionals (professionals i.e. , PA, QUENCHING CAR OPERATOR, lab, RT, psych nurse, social worker school, scroll shear operator, teacher, agricultural loan officer, geriatric case manager)? Give summary @ -Yes, mid-level provider Jie of [facility] who accepted the admission. Was in agreement with cardiology consult and treatment in the troponin which is likely secondary to his underlying ANGELA as well as infection. Was smoking cessation discussed for >3mins.? @ -No Was critical care preformed (if so, how long)? @ -Yes. 35 minutes. Were there social determinants of health that impacted care today? How? (Homelessness, low income, unemployed, alcoholism, drug addiction, transportatio n, low edu. Level, literacy, decrease access to med. care, [facility], rehab)? @ -No Was there de-escalation of care discussed even if they declined (Discuss DNR or withdrawal of care, Hospice)? DNR status @ -No What co-morbidities impacted this encounter? (DM, HTN, Smoking, COPD, CAD, Cancer, CVA, ARF, Chemo, Hep., AIDS, mental health diagnosis, sleep apnea, morbid obesity)? @ -Dementia Was patient admitted / discharged? Hospital course, mention meds given and route, prescriptions, significant lab abnormalities, going to OR and other pertinent info. @ -Admitted. See above for ED course. Undiagnosed new problem with uncertain prognosis? @ -No Drug Therapy requiring intensive monitoring for toxicity (Heparin, Nitro, Insulin, Cardizem)? @ -No Were any procedures done? @ -No Diagnosis/symptom? @ -Bilateral pneumonia Acute, or Chronic, or Acute on Chronic? @ -Acute Uncomplicated (without systemic symptoms) or Complicated (systemic symptoms)? @ -Complicated Side effects of treatment? @ -No Exacerbation, Progression, or Severe Exacerbation? @ -No Poses a threat to life or bodily function? How? (Chest pain, [place], [place], pneumonia, PE, COPD, DKA, ARF, appy, cholecystitis, CVA, Diverticulitis, Homicidal, Suicidal, threat to staff... and all critical care pts) @ -Yes, if untreated can result in significant morbidity and mortality. Diagnosis/symptom? @ -Hypoxic respiratory failure Acute, or Chronic, or Acute on Chronic? @ -Acute Uncomplicated (without systemic symptoms) or Complicated (systemic symptoms)? @ -Complicated Side effects of treatment? @ -none Exacerbation, Progression, or Severe Exacerbation] @ -no Poses a threat to life or bodily function? @ -Yes, if untreated can result in significant morbidity and mortality. Diagnosis/symptom? @ -AK I Acute, or Chronic, or Acute on Chronic? @ -Acute Uncomplicated (without systemic symptoms) or Complicated (systemic symptoms)? @ -Complicated Side effects of treatment? @ -none Exacerbation, Progression, or Severe Exacerbation] @ -no Poses a threat to life or bodily function? @ -Yes, if untreated can result in significant morbidity and mortality. Diagnosis/symptom? @ -Elevated troponin, likely secondary to ANGELA and infection Acute, or Chronic, or Acute on Chronic? @ -Acute Uncomplicated (without systemic symptoms) or Complicated (systemic symptoms)? @ -Uncomplicated Side effects of treatment? @ -none Exacerbation, Progression, or Severe Exacerbation] @ -no Poses a threat to life or bodily function? @ -no Diagnosis/symptom? @ -COVID-19 infection Acute, or Chronic, or Acute on Chronic? @ -Acute Uncomplicated (without systemic symptoms) or Complicated (systemic symptoms)? @ -Complicated Side effects of treatment? @ -none Exacerbation, Progression, or Severe Exacerbation] @ -no Poses a threat to life or bodily function? @ -Yes, if untreated can result in significant morbidity and mortality. Diagnosis/symptom? @ -Dementia Acute, or Chronic, or Acute on Chronic? @ -Chronic Uncomplicated (without systemic symptoms) or Complicated (systemic symptoms)? @ -Uncomplicated Side effects of treatment? @ -none Exacerbation, Progression, or Severe Exacerbation] @ -no Poses a threat to life or bodily function? @ -no - Lab Data Result diagrams: 09/05/22 00:48 09/05/22 00:48 Lab Results 09/05/22 09/05/22 09/05/22 Range/Units 00:48 00:48 00:48 WBC 16.3 H (3.8-10.6) k/uL RBC 3.03 L (4.30-5.90) m/uL Hgb 9.9 L (13.0-17.5) gm/dL Hct 29.5 L (39.0-53.0) % MCV 97.6 (80.0-100.0) fL MCH 32.7 (25.0-35.0) pg MCHC 33.5 (31.0-37.0) g/dL RDW 12.4 (11.5-15.5) % Plt Count 199 (150-450) k/uL MPV 10.3 Neutrophils % 86 % Lymphocytes % 6 % Monocytes % 5 % Eosinophils % 2 % Basophils % 0 % Neutrophils # 14.0 H (1.3-7.7) k/uL Lymphocytes # 1.0 (1.0-4.8) k/uL Monocytes # 0.8 (0-1.0) k/uL Eosinophils # 0.2 (0-0.7) k/uL Basophils # 0.0 (0-0.2) k/uL PT 12.5 H (9.0-12.0) sec INR 1.2 H (<1.2) APTT 26.3 (22.0-30.0) sec D-Dimer 19.77 H (<0.60) mg/L FEU Sodium 138 (137-145) mmol/L Potassium 5.0 (3.5-5.1) mmol/L Chloride 105 (98-107) mmol/L Carbon Dioxide 28 (22-30) mmol/L Anion Gap 5 mmol/L BUN 37 H (9-20) mg/dL Creatinine 1.30 H (0.66-1.25) mg/dL Est GFR (CKD-EPI)AfAm 57 (>60 ml/min/1.73 sqM) Est GFR (CKD-EPI)NonAf 49 (>60 ml/min/1.73 sqM) Glucose 117 H (74-99) mg/dL Plasma Lactic Acid Erickson (0.7-2.0) mmol/L Calcium 9.1 (8.4-10.2) mg/dL Magnesium 2.1 (1.6-2.3) mg/dL Total Bilirubin 0.6 (0.2-1.3) mg/dL AST 26 (17-59) U/L ALT 17 (4-49) U/L Alkaline Phosphatase 83 (38-126) U/L Troponin I (0.000-0.034) ng/mL NT-Pro-B Natriuret Pep pg/mL Total Protein 6.2 L (6.3-8.2) g/dL Albumin 2.8 L (3.5-5.0) g/dL Influenza Type A (PCR) (Not Detectd) Influenza Type B (PCR) (Not Detectd) RSV (PCR) (Not Detectd) SARS-CoV-2 (PCR) (Not Detectd) Group A Strep (PCR) (Not Detectd) 09/05/22 09/05/22 09/05/22 Range/Units 00:48 00:48 00:48 WBC (3.8-10.6) k/uL RBC (4.30-5.90) m/uL Hgb (13.0-17.5) gm/dL Hct (39.0-53.0) % MCV (80.0-100.0) fL MCH (25.0-35.0) pg MCHC (31.0-37.0) g/dL RDW (11.5-15.5) % Plt Count (150-450) k/uL MPV Neutrophils % % Lymphocytes % % Monocytes % % Eosinophils % % Basophils % % Neutrophils # (1.3-7.7) k/uL Lymphocytes # (1.0-4.8) k/uL Monocytes # (0-1.0) k/uL Eosinophils # (0-0.7) k/uL Basophils # (0-0.2) k/uL PT (9.0-12.0) sec INR (<1.2) APTT (22.0-30.0) sec D-Dimer (<0.60) mg/L FEU Sodium (137-145) mmol/L Potassium (3.5-5.1) mmol/L Chloride (98-107) mmol/L Carbon Dioxide (22-30) mmol/L Anion Gap mmol/L BUN (9-20) mg/dL Creatinine (0.66-1.25) mg/dL Est GFR (CKD-EPI)AfAm (>60 ml/min/1.73 sqM) Est GFR (CKD-EPI)NonAf (>60 ml/min/1.73 sqM) Glucose (74-99) mg/dL Plasma Lactic Acid Erickson 1.1 (0.7-2.0) mmol/L Calcium (8.4-10.2) mg/dL Magnesium (1.6-2.3) mg/dL Total Bilirubin (0.2-1.3) mg/dL AST (17-59) U/L ALT (4-49) U/L Alkaline Phosphatase (38-126) U/L Troponin I 0.257 H* (0.000-0.034) ng/mL NT-Pro-B Natriuret Pep 751 pg/mL Total Protein (6.3-8.2) g/dL Albumin (3.5-5.0) g/dL Influenza Type A (PCR) (Not Detectd) Influenza Type B (PCR) (Not Detectd) RSV (PCR) (Not Detectd) SARS-CoV-2 (PCR) (Not Detectd) Group A Strep (PCR) (Not Detectd) 09/05/22 09/05/22 Range/Units 00:48 00:48 WBC (3.8-10.6) k/uL RBC (4.30-5.90) m/uL Hgb (13.0-17.5) gm/dL Hct (39.0-53.0) % MCV (80.0-100.0) fL MCH (25.0-35.0) pg MCHC (31.0-37.0) g/dL RDW (11.5-15.5) % Plt Count (150-450) k/uL MPV Neutrophils % % Lymphocytes % % Monocytes % % Eosinophils % % Basophils % % Neutrophils # (1.3-7.7) k/uL Lymphocytes # (1.0-4.8) k/uL Monocytes # (0-1.0) k/uL Eosinophils # (0-0.7) k/uL Basophils # (0-0.2) k/uL PT (9.0-12.0) sec INR (<1.2) APTT (22.0-30.0) sec D-Dimer (<0.60) mg/L FEU Sodium (137-145) mmol/L Potassium (3.5-5.1) mmol/L Chloride (98-107) mmol/L Carbon Dioxide (22-30) mmol/L Anion Gap mmol/L BUN (9-20) mg/dL Creatinine (0.66-1.25) mg/dL Est GFR (CKD-EPI)AfAm (>60 ml/min/1.73 sqM) Est GFR (CKD-EPI)NonAf (>60 ml/min/1.73 sqM) Glucose (74-99) mg/dL Plasma Lactic Acid Erickson (0.7-2.0) mmol/L Calcium (8.4-10.2) mg/dL Magnesium (1.6-2.3) mg/dL Total Bilirubin (0.2-1.3) mg/dL AST (17-59) U/L ALT (4-49) U/L Alkaline Phosphatase (38-126) U/L Troponin I (0.000-0.034) ng/mL NT-Pro-B Natriuret Pep pg/mL Total Protein (6.3-8.2) g/dL Albumin (3.5-5.0) g/dL Influenza Type A (PCR) Not Detected (Not Detectd) Influenza Type B (PCR) Not Detected (Not Detectd) RSV (PCR) Not Detected (Not Detectd) SARS-CoV-2 (PCR) Detected A (Not Detectd) Group A Strep (PCR) NOT DETECTED (Not Detectd) - EKG Data -: EKG Interpreted by Me EKG Comments: 12-lead Electrocardiogram Interpretation Note EKG was reviewed and interpreted by myself. 12-lead ECG performed at 0048 is interpreted by me as revealing sinus tachycardia at a rate of 104 beats per minute. [place] is normal. [place] interval is 132 ms, QRS duration is 87 ms, QTc is 397 ms.. There were no ST or T wave abnormalities to suggest myocardial ischemia or injury. R wave progression across the precordium was satisfactory. By my interpretation this EKG is non-diagnostic for acute ischemia. When compared with EKG from November 2018, the current EKG actually looks improved as the EKG from November 2018 appeared to have ischemic changes. Critical Care Time Critical Care Time: Yes Total Critical Care Time: 35 Critical Care Time: Upon my evaluation, this patient had a high probability of imminent or life- threatening deterioration due to bilateral pneumonia, hypoxic respiratory failure, AK I, which required my direct attention, intervention, and personal management. I have personally provided 35 minutes of critical care time exclusive of time spent on separately billable procedures. Time includes review of laboratory data, radiology results, discussion with consultants, and monitoring for potential decompensation. Interventions were performed as documented in my note. Disposition Clinical Impression: Hypoxia, Pneumonia, COVID-19, Elevated troponin, Dehydration, Dementia, ANGELA (acute kidney injury) Disposition: ADMITTED IP TO THIS [facility] Condition: Serious Referrals: Torito Hong MD [Primary Care Provider] - 1-2 days Time of Disposition: 03:02
--- NOTE | 2022-09-05 02:43 | CT ---
EXAMINATION TYPE: CT chest angio for PE DATE OF EXAM: 09/05/2022 COMPARISON: None HISTORY: Elevated D-dimer CT DLP: 373.8 mGycm Automated exposure control for dose reduction was used. CONTRAST: Performed with IV Contrast, patient injected with 80ml mL of Isovue 370. There are 3-D post processed images. There is extensive patchy bilateral airspace consolidation. This is worse in the right upper lobe and left lower lobe. Heart is borderline enlarged. No pericardial effusion. No pleural effusion. There a re bronchial and mediastinal lymph nodes that measure up to 1.5 cm. Thoracic aorta is intact. No aneu rysm. There is no evidence of filling defect in the pulmonary arteries. The thoracic spine is intact. No compression fracture. The upper abdominal soft tissues are intact. IMPRESSION: No evidence of pulmonary embolism. Extensive bilateral pneumonia.
[2022-09-05] MEDS ORDERED: NALOXONE 0.4 MG/ML 1 ML VIAL IV PRN (02:57)
[2022-09-05] MEDS ORDERED: SODIUM CHLORIDE 0.9% 1,000 ML IV SCH (03:00)
[2022-09-05] MEDS ORDERED: ACETAMINOPHEN ORAL SUSP 160 MG/5 ML CUP PO STA (03:03)
[2022-09-05] MEDS ORDERED: LEVOFLOXACIN 750MG-D5W PMX 750 MG in DEXTROSE/WATER 1 150ML.BAG IVPB SCH (04:00)
[2022-09-05] MEDS ORDERED: ASPIRIN 81 MG PO STA (04:05)
[2022-09-05] MEDS ORDERED: MORPHINE SULFATE 4 MG/ML SYRINGE IVP STA (04:17)
[2022-09-05] MEDS ORDERED: AZITHROMYCIN 500 MG in SODIUM CHLORIDE 0.9% 250 ML IVPB SCH (06:00)
--- NOTE | 2022-09-05 08:21 | US ---
EXAMINATION TYPE: US venous doppler duplex LE BI DATE OF EXAM: 09/05/2022 7:33 AM COMPARISON: None CLINICAL HISTORY: 87-year-old male eval for DVT, elevated dimer.. On blood thinners per family member . Covid +. SIDE PERFORMED: Bilateral TECHNIQUE: The lower extremity deep venous system is examined utilizing real time linear array sonog miriam with graded compression, doppler sonography and color-flow sonography. FINDINGS: VESSELS IMAGED: Common Femoral Vein Deep Femoral Vein Greater Saphenous Vein * Femoral Vein Popliteal Vein Small Saphenous Vein * Proximal Calf Veins (* superficial vessels) Right Leg: POSITIVE for occlusive DVT in distal popliteal vein to calf veins Left Leg: Negative for DVT IMPRESSION: 1. Right lower extremity positive for occlusive/acute DVT extending from the lower popliteal vein int o the calf veins. 2. No evidence for DVT within the left lower extremity imaged from the groin to the upper calf.
[2022-09-05] MEDS ORDERED: ASPIRIN 81 MG PO SCH (09:00)
[2022-09-05] MEDS ORDERED: CLOPIDOGREL 75 MG TAB PO SCH (09:00)
[2022-09-05] MEDS ORDERED: HEPARIN SODIUM,PORCINE/PF 5,000 UNIT/0.5 ML SYRINGE SQ SCH (09:00)
[2022-09-05] MEDS ORDERED: lisinopriL 10 MG TAB PO SCH (09:00)
[2022-09-05] MEDS ORDERED: HEPARIN SOD,PORK IN 0.45% NACL 25,000 UNIT in 0.45% NACL 1 250ML.BAG IV SCH (09:15)
[2022-09-05] MEDS ORDERED: HEPARIN SODIUM 1,000 UN/ML (10ML VL) IV ONE (09:15)
[2022-09-05] MEDS ORDERED: HEPARIN SODIUM 1,000 UN/ML (10ML VL) IV PRN (09:15)
[2022-09-05 09:41] LABS: Basophils % (A) 0 %; Eosinophils # (A) 0.4 k/uL (0-0.7); Eosinophils % (A) 4 %; HCT 25.5 % (39.0-53.0); Lymphocytes # (A) 1.1 k/uL (1.0-4.8); Lymphocytes % (A) 10 %; MCH 32.4 pg (25.0-35.0); MCHC 32.4 g/dL (31.0-37.0); MCV 99.9 fL (80.0-100.0); Mean Platelet Volume 10.5; Monocytes # (A) 0.6 k/uL (0-1.0); Monocytes % (A) 6 %; Neutrophils # (A) 8.1 k/uL (1.3-7.7); Neutrophils % (A) 78 %; Platelet Count 178 k/uL (150-450); RBC 2.55 m/uL (4.30-5.90); RDW 12.3 % (11.5-15.5); WBC 10.4 k/uL (3.8-10.6)
[2022-09-05 09:46] LABS: Calcium 7.8 mg/dL (8.4-10.2); Potassium 4.3 mmol/L (3.5-5.1)
[2022-09-05] MEDS: MEMANTINE 5 MG TAB PO SCH (09:46)
[2022-09-05 09:53] LABS: HGB 8.3 gm/dL (13.0-17.5)
[2022-09-05] MEDS: METOPROLOL TARTRATE 25 MG TAB PO SCH (10:12)
[2022-09-05] MEDS: SODIUM CHLORIDE 0.9% 1,000 ML IV SCH ×2 (10:12→17:30)
[2022-09-05 10:56] LABS: Appearance,Urine Clear (Clear); Bilirubin,Urine Negative (Negative); Blood,Urine Negative (Negative); Color,Urine Yellow; Glucose,Urine (UA) Negative (Negative); Ketones,Urine Negative (Negative); Leukocyte Esterase,Urine Negative (Negative); Nitrite,Urine Negative (Negative); PH, Urine 6.5 (5.0-8.0); Protein,Urine Trace (Negative); Urobilinogen,Urine <2.0 mg/dL (<2.0)
[2022-09-05] MEDS ORDERED: VANCOMYCIN IV PER PHARMACY 1 EACH MISC MISCELLANE PRN (11:01)
[2022-09-05] MEDS ORDERED: PANTOPRAZOLE 40 MG TABLET PO PRN (11:05)
[2022-09-05] MEDS: APIXABAN 5 MG TAB PO SCH (11:23)
[2022-09-05] MEDS ORDERED: VANCOMYCIN 1,250 MG in SODIUM CHLORIDE 0.9% 250 ML IVPB SCH (12:00)
--- NOTE | 2022-09-05 12:31 | P.HPIM ---
History of Present Illness Patient is a 70-year-old male with a history of moderate to severe dementia came in with complaints of not feeling well dyspnea right lower extremity swelling. Patient function at is poor to start with. Patient I was diagnosed with COVID- 19 during . Patient started having upper to cough with green sputum production because of which his primary doctor started him on doxycycline after which he had some improvement with followed by worsening of his shortness of breath and generalized weakness because of which have patient was brought to ER. CT angios the chest was opted which showed extensive pneumonia predominantly in the right side along with a DVT involving the popliteal deep vein syndrome right lower extremity patient's creatinine is 1.3 baseline is within normal limits patient is presently on 3 L of oxygen. ProBNP is 750 one patient had normal ejection fraction the past. Patient had mildly elevated troponins 3 of them around 0.2. EKG shows sinus tachycardia. Patient had leukocytosis REVIEW OF SYSTEMS: Unable to obtain due to his clinical condition PHYSICAL EXAMINATION: GENERAL: Patient is a quite weak and unable to assess his orientation appears to be alert oriented 0-1 this apparently is his baseline HEENT: Pupils are round and equally reacting to light. EOMI. No scleral icterus. No conjunctival pallor. Normocephalic, atraumatic. No pharyngeal erythema. No thyromegaly. CARDIOVASCULAR: S1 and S2 present. No murmurs, rubs, or gallops. PULMONARY: Significantly diminished air entry with bilateral crackles ABDOMEN: Soft, nontender, nondistended, normoactive bowel sounds. No palpable organomegaly. MUSCULOSKELETAL: No joint swelling or deformity. EXTREMITIES: No cyanosis, clubbing, or pedal edema. NEUROLOGICAL: Significant generalized weakness without any focal deficits SKIN: No rashes. Assessment and plan -Sepsis secondary to bilateral extensive pneumonia patient will be started on vancomycin for postoperative staphylococcal pneumonia. Patient was started on Rocephin as well as levofloxacin and azithromycin were discontinued infectious disease and pulmonary will be consulted. Patient prognosis is extremely poor same thing was discussed with the family patient has very weak cough putting him at a higher risk for recurrent pneumonia. -Elevated troponin secondary to sepsis -Acute renal failure secondary to sepsis, prerenal azotemia patient will continue on IV fluids no evidence of CHF at this time -Right lower extremity DVT for which patient was started on heparin which will be transitioned to liquids -Recent COVID-19 infection -Dementia appears to be moderate to advanced supportive care -Gastroesophageal dysphagia reflux disease -Coronary artery disease with cardiac catheterization stents in the past CODE STATUS DO NOT RESUSCITATE discussed with the family members daughter and at the bedside DVT prophylaxis: On anti-coagulation Past Medical History Past Medical History: Dementia, Deep Vein Thrombosis (DVT), Eye Disorder, GERD/Reflux, Myocardial Infarction ([place]), Pneumonia Additional Past Medical History / Comment(s): DVT in legs, cateract removed right eye, restless leg syndrome. Last Myocardial Infarction Date:: 12/01/18 History of Any Multi-Drug Resistant Organisms: None Reported Past Surgical History: Heart Catheterization With Stent, Hernia Repair, Joint Replacement, Orthopedic Surgery Additional Past Surgical History / Comment(s): Bilat knee replacement, rotator c uff surgery Past Anesthesia/Blood Transfusion Reactions: No Reported Reaction Date of Last Stent Placement:: 12/01/18 Past Psychological History: No Psychological Hx Reported Past Alcohol Use History: Daily Past Drug Use History: Marijuana - Past Family History Brother(s) Family Medical History: Cancer Father History Unknown: Yes Medications and Allergies Home Medications Medication Instructions Recorded Confirmed Type Memantine HCl [Memantine HCl ER] 21 mg PO DAILY 12/01/18 09/05/22 History Multivitamin,Therapeutic [Thera] 1 tab PO DAILY 12/01/18 09/05/22 History Omeprazole 20 mg PO DAILY 12/01/18 09/05/22 History Clopidogrel [Plavix] 75 mg PO DAILY #30 tab 12/03/18 09/05/22 Rx Nitroglycerin Sl Tabs [Nitrostat] 0.4 mg SUBLINGUAL Q5M PRN #25 tab 12/03/18 09/05/22 Rx lisinopriL [Zestril] 10 mg PO DAILY #30 tab 12/03/18 09/05/22 Rx Ascorbic Acid [Vitamin C] 500 mg PO DAILY 09/05/22 09/05/22 History Cholecalciferol (Vitamin D3) 75 mcg PO DAILY 09/05/22 09/05/22 History [Vitamin D3 (3000 Iu)] Pramipexole [Mirapex] 1 mg PO BID 09/05/22 09/05/22 History Rivastigmine Tartrate 6 mg PO BID-W/MEALS 09/05/22 09/05/22 History [Rivastigmine] Ubidecarenone [Co Q-10] 400 mg PO DAILY 09/05/22 09/05/22 History Vitamin B Complex 1 cap PO DAILY 09/05/22 09/05/22 History Zinc Gluconate [Zinc] 50 mg PO DAILY 09/05/22 09/05/22 History Allergies Allergy/AdvReac Type Severity Reaction Status Date / Time No Known Allergies Allergy Verified 09/04/22 23:43 Physical Exam Vitals: Vital Signs Temp Pulse Resp BP Pulse Ox 09/05/22 11:29 94 15 107/48 94 L 09/05/22 10:28 90 18 118/56 90 L 09/05/22 08:55 82 17 107/54 09/05/22 05:32 90 9 L 102/50 94 L 09/05/22 01:54 91 16 97 09/05/22 01:52 90 16 88 L 09/04/22 23:43 98.6 F 103 H 17 127/77 95 Intake and Output 09/04/22 09/05/22 09/05/22 22:59 06:59 14:59 Other: Weight 68.039 kg Results CBC & Chem 7: 09/05/22 08:55 09/05/22 08:55 Labs: Abnormal Lab Results - Last 24 Hours (Table) 09/05/22 09/05/22 09/05/22 Range/Units 00:48 00:48 00:48 WBC 16.3 H (3.8-10.6) k/uL RBC 3.03 L (4.30-5.90) m/uL Hgb 9.9 L (13.0-17.5) gm/dL Hct 29.5 L (39.0-53.0) % Neutrophils # 14.0 H (1.3-7.7) k/uL PT 12.5 H (9.0-12.0) sec INR 1.2 H (<1.2) D-Dimer 19.77 H (<0.60) mg/L FEU Chloride (98-107) mmol/L BUN 37 H (9-20) mg/dL Creatinine 1.30 H (0.66-1.25) mg/dL Glucose 117 H (74-99) mg/dL Calcium (8.4-10.2) mg/dL Troponin I (0.000-0.034) ng/mL Total Protein 6.2 L (6.3-8.2) g/dL Albumin 2.8 L (3.5-5.0) g/dL Ur Specific [place] (1.001-1.035) Urine Protein (Negative) SARS-CoV-2 (PCR) (Not Detectd) 09/05/22 09/05/22 09/05/22 Range/Units 00:48 00:48 05:10 WBC (3.8-10.6) k/uL RBC (4.30-5.90) m/uL Hgb (13.0-17.5) gm/dL Hct (39.0-53.0) % Neutrophils # (1.3-7.7) k/uL PT (9.0-12.0) sec INR (<1.2) D-Dimer (<0.60) mg/L FEU Chloride (98-107) mmol/L BUN (9-20) mg/dL Creatinine (0.66-1.25) mg/dL Glucose (74-99) mg/dL Calcium (8.4-10.2) mg/dL Troponin I 0.257 H* 0.216 H* (0.000-0.034) ng/mL Total Protein (6.3-8.2) g/dL Albumin (3.5-5.0) g/dL Ur Specific [place] (1.001-1.035) Urine Protein (Negative) SARS-CoV-2 (PCR) Detected A (Not Detectd) 09/05/22 09/05/22 09/05/22 Range/Units 08:55 08:55 08:55 WBC (3.8-10.6) k/uL RBC 2.55 L (4.30-5.90) m/uL Hgb 8.3 L D (13.0-17.5) gm/dL Hct 25.5 L (39.0-53.0) % Neutrophils # 8.1 H (1.3-7.7) k/uL PT (9.0-12.0) sec INR (<1.2) D-Dimer (<0.60) mg/L FEU Chloride 109 H (98-107) mmol/L BUN 32 H (9-20) mg/dL Creatinine (0.66-1.25) mg/dL Glucose (74-99) mg/dL Calcium 7.8 L (8.4-10.2) mg/dL Troponin I 0.224 H* (0.000-0.034) ng/mL Total Protein (6.3-8.2) g/dL Albumin (3.5-5.0) g/dL Ur Specific [place] (1.001-1.035) Urine Protein (Negative) SARS-CoV-2 (PCR) (Not Detectd) 09/05/22 Range/Units 10:27 WBC (3.8-10.6) k/uL RBC (4.30-5.90) m/uL Hgb (13.0-17.5) gm/dL Hct (39.0-53.0) % Neutrophils # (1.3-7.7) k/uL PT (9.0-12.0) sec INR (<1.2) D-Dimer (<0.60) mg/L FEU Chloride (98-107) mmol/L BUN (9-20) mg/dL Creatinine (0.66-1.25) mg/dL Glucose (74-99) mg/dL Calcium (8.4-10.2) mg/dL Troponin I (0.000-0.034) ng/mL Total Protein (6.3-8.2) g/dL Albumin (3.5-5.0) g/dL Ur Specific [place] 1.050 H (1.001-1.035) Urine Protein Trace H (Negative) SARS-CoV-2 (PCR) (Not Detectd)
--- NOTE | 2022-09-05 13:42 | P.GSCN ---
History of Present Illness Consult date: 09/05/22 Reason for Consult: Right lower extremity DVT Requesting physician: Katie Lucero History of present illness: This is a pleasant 87-year-old male who was brought in by his family for concerns of shortness of breath and increased right lower extremity swelling. Patient reportedly had been coughing and is starting to bring up green sputum along with increased shortness of breath. He been diagnosed with COVID-19 infection prior to [place]. He recently was seen by his primary care physician and started on antibiotics however there is no improvement in his symptoms. His past medical history includes dementia, DVT, GERD, and myocardial infarction. Patient was previously on Plavix for coronary artery disease. He has chronic lower extremity edema however right lower extremity was increasing in size as well. He has pain to bilateral lower extremities. Currently denies any chest pain, no shortness of breath at rest he is currently on 3 L of oxygen per nasal cannula. Patient had a positive d-dimer on admission, he underwent a chest CT angiogram that was negative for pulmonary embolism. Had a venous duplex of bilateral lower extremities that was positive for a right lower extremity DVT in the distal and popliteal vein to the calf veins. Patient was initially started on heparin drip and has been transitioned already over to Elquis. Review of Systems A 14 point review systems was completed all pertinent positives and negatives as stated in the HPI. Past Medical History Past Medical History: Dementia, Deep Vein Thrombosis (DVT), Eye Disorder, GERD/Reflux, Myocardial Infarction ([place]), Pneumonia Additional Past Medical History / Comment(s): DVT in legs, cateract removed right eye, restless leg syndrome. Last Myocardial Infarction Date:: 12/01/18 History of Any Multi-Drug Resistant Organisms: None Reported Past Surgical History: Heart Catheterization With Stent, Hernia Repair, Joint Replacement, Orthopedic Surgery Additional Past Surgical History / Comment(s): Bilat knee replacement, rotator cuff surgery Past Anesthesia/Blood Transfusion Reactions: No Reported Reaction Date of Last Stent Placement:: 12/01/18 Past Psychological History: No Psychological Hx Reported Past Alcohol Use History: Daily Past Drug Use History: Marijuana - Past Family History Brother(s) Family Medical History: Cancer Father History Unknown: Yes Medications and Allergies Home Medications Medication Instructions Recorded Confirmed Type Memantine HCl [Memantine HCl ER] 21 mg PO DAILY 12/01/18 09/05/22 History Multivitamin,Therapeutic [Thera] 1 tab PO DAILY 12/01/18 09/05/22 History Omeprazole 20 mg PO DAILY 12/01/18 09/05/22 History Clopidogrel [Plavix] 75 mg PO DAILY #30 tab 12/03/18 09/05/22 Rx Nitroglycerin Sl Tabs [Nitrostat] 0.4 mg SUBLINGUAL Q5M PRN #25 tab 12/03/18 09/05/22 Rx lisinopriL [Zestril] 10 mg PO DAILY #30 tab 12/03/18 09/05/22 Rx Ascorbic Acid [Vitamin C] 500 mg PO DAILY 09/05/22 09/05/22 History Cholecalciferol (Vitamin D3) 75 mcg PO DAILY 09/05/22 09/05/22 History [Vitamin D3 (3000 Iu)] Pramipexole [Mirapex] 1 mg PO BID 09/05/22 09/05/22 History Rivastigmine Tartrate 6 mg PO BID-W/MEALS 09/05/22 09/05/22 History [Rivastigmine] Ubidecarenone [Co Q-10] 400 mg PO DAILY 09/05/22 09/05/22 History Vitamin B Complex 1 cap PO DAILY 09/05/22 09/05/22 History Zinc Gluconate [Zinc] 50 mg PO DAILY 09/05/22 09/05/22 History Allergies Allergy/AdvReac Type Severity Reaction Status Date / Time No Known Allergies Allergy Verified 09/04/22 23:43 Surgical - Exam Vital Signs Temp Pulse Resp BP Pulse Ox 98.6 F 103 H 17 127/77 95 09/04/22 23:43 09/04/22 23:43 09/04/22 23:43 09/04/22 23:43 09/04/22 23:43 General appearance: The patient is alert, oriented, appears in no acute distress. HET: Head is normocephalic and atraumatic. Pupils are equal and reactive. Neck: Supple. Heart: Regular. Lungs: Equal expansion, normal respiratory effort. Abdomen: Soft, nontender, nondistended. Extremities: Bilateral lower extremity edema with erythema. Tenderness to pa lpation. Bilateral dorsalis pedis pulses present. Neurological: Patient is alert, oriented to self and place. Results - Labs 09/05/22 08:55 09/05/22 08:55 Abnormal Lab Results - Last 24 Hours (Table) 09/05/22 09/05/22 09/05/22 Range/Units 00:48 00:48 00:48 WBC 16.3 H (3.8-10.6) k/uL RBC 3.03 L (4.30-5.90) m/uL Hgb 9.9 L (13.0-17.5) gm/dL Hct 29.5 L (39.0-53.0) % Neutrophils # 14.0 H (1.3-7.7) k/uL PT 12.5 H (9.0-12.0) sec INR 1.2 H (<1.2) D-Dimer 19.77 H (<0.60) mg/L FEU Chloride (98-107) mmol/L BUN 37 H (9-20) mg/dL Creatinine 1.30 H (0.66-1.25) mg/dL Glucose 117 H (74-99) mg/dL Calcium (8.4-10.2) mg/dL Troponin I (0.000-0.034) ng/mL Total Protein 6.2 L (6.3-8.2) g/dL Albumin 2.8 L (3.5-5.0) g/dL Ur Specific [place] (1.001-1.035) Urine Protein (Negative) SARS-CoV-2 (PCR) (Not Detectd) 09/05/22 09/05/22 09/05/22 Range/Units 00:48 00:48 05:10 WBC (3.8-10.6) k/uL RBC (4.30-5.90) m/uL Hgb (13.0-17.5) gm/dL Hct (39.0-53.0) % Neutrophils # (1.3-7.7) k/uL PT (9.0-12.0) sec INR (<1.2) D-Dimer (<0.60) mg/L FEU Chloride (98-107) mmol/L BUN (9-20) mg/dL Creatinine (0.66-1.25) mg/dL Glucose (74-99) mg/dL Calcium (8.4-10.2) mg/dL Troponin I 0.257 H* 0.216 H* (0.000-0.034) ng/mL Total Protein (6.3-8.2) g/dL Albumin (3.5-5.0) g/dL Ur Specific [place] (1.001-1.035) Urine Protein (Negative) SARS-CoV-2 (PCR) Detected A (Not Detectd) 09/05/22 09/05/22 09/05/22 Range/Units 08:55 08:55 08:55 WBC (3.8-10.6) k/uL RBC 2.55 L (4.30-5.90) m/uL Hgb 8.3 L D (13.0-17.5) gm/dL Hct 25.5 L (39.0-53.0) % Neutrophils # 8.1 H (1.3-7.7) k/uL PT (9.0-12.0) sec INR (<1.2) D-Dimer (<0.60) mg/L FEU Chloride 109 H (98-107) mmol/L BUN 32 H (9-20) mg/dL Creatinine (0.66-1.25) mg/dL Glucose (74-99) mg/dL Calcium 7.8 L (8.4-10.2) mg/dL Troponin I 0.224 H* (0.000-0.034) ng/mL Total Protein (6.3-8.2) g/dL Albumin (3.5-5.0) g/dL Ur Specific [place] (1.001-1.035) Urine Protein (Negative) SARS-CoV-2 (PCR) (Not Detectd) 09/05/22 Range/Units 10:27 WBC (3.8-10.6) k/uL RBC (4.30-5.90) m/uL Hgb (13.0-17.5) gm/dL Hct (39.0-53.0) % Neutrophils # (1.3-7.7) k/uL PT (9.0-12.0) sec INR (<1.2) D-Dimer (<0.60) mg/L FEU Chloride (98-107) mmol/L BUN (9-20) mg/dL Creatinine (0.66-1.25) mg/dL Glucose (74-99) mg/dL Calcium (8.4-10.2) mg/dL Troponin I (0.000-0.034) ng/mL Total Protein (6.3-8.2) g/dL Albumin (3.5-5.0) g/dL Ur Specific [place] 1.050 H (1.001-1.035) Urine Protein Trace H (Negative) SARS-CoV-2 (PCR) (Not Detectd) Diabetes panel 09/05/22 09/05/22 Range/Units 00:48 08:55 Sodium 138 138 (137-145) mmol/L Potassium 5.0 4.3 (3.5-5.1) mmol/L Chloride 105 109 H (98-107) mmol/L Carbon Dioxide 28 25 (22-30) mmol/L BUN 37 H 32 H (9-20) mg/dL Creatinine 1.30 H 1.20 (0.66-1.25) mg/dL Glucose 117 H 79 (74-99) mg/dL Calcium 9.1 7.8 L (8.4-10.2) mg/dL AST 26 (17-59) U/L ALT 17 (4-49) U/L Alkaline Phosphatase 83 (38-126) U/L Total Protein 6.2 L (6.3-8.2) g/dL Albumin 2.8 L (3.5-5.0) g/dL Calcium panel 09/05/22 09/05/22 Range/Units 00:48 08:55 Calcium 9.1 7.8 L (8.4-10.2) mg/dL Albumin 2.8 L (3.5-5.0) g/dL Pituitary panel 09/05/22 09/05/22 Range/Units 00:48 08:55 Sodium 138 138 (137-145) mmol/L Potassium 5.0 4.3 (3.5-5.1) mmol/L Chloride 105 109 H (98-107) mmol/L Carbon Dioxide 28 25 (22-30) mmol/L BUN 37 H 32 H (9-20) mg/dL Creatinine 1.30 H 1.20 (0.66-1.25) mg/dL Glucose 117 H 79 (74-99) mg/dL Calcium 9.1 7.8 L (8.4-10.2) mg/dL Adrenal panel 09/05/22 09/05/22 Range/Units 00:48 08:55 Sodium 138 138 (137-145) mmol/L Potassium 5.0 4.3 (3.5-5.1) mmol/L Chloride 105 109 H (98-107) mmol/L Carbon Dioxide 28 25 (22-30) mmol/L BUN 37 H 32 H (9-20) mg/dL Creatinine 1.30 H 1.20 (0.66-1.25) mg/dL Glucose 117 H 79 (74-99) mg/dL Calcium 9.1 7.8 L (8.4-10.2) mg/dL Total Bilirubin 0.6 (0.2-1.3) mg/dL AST 26 (17-59) U/L ALT 17 (4-49) U/L Alkaline Phosphatase 83 (38-126) U/L Total Protein 6.2 L (6.3-8.2) g/dL Albumin 2.8 L (3.5-5.0) g/dL Assessment and Plan Assessment: 1. Right lower extremity DVT 2. COVID-19 infection 3. Shortness of breath Plan: 1. Agree with oral anticoagulation. Patient transitioned to Eliquis. 2. Recommend support hose to bilateral lower extremities 3. Elevate bilateral lower extremities 4. No indication for any vascular surgical intervention 5. Patient is clear from vascular surgery for discharge Thank you for this consultation. We will sign off at this time. The impression and plan of care has been dictated as directed. I performed a history and examination of this patient, discussed the same with the dictator. I agree with the dictator's note ,documented as a scribe. Any additional findings or plans will be noted.
[2022-09-05] MEDS ORDERED: IPRATROPIUM-ALBUTEROL 3 ML NEB INHALATION PRN (13:53)
[2022-09-05] MEDS ORDERED: ALBUTEROL HFA INHALER INHALATION PRN (13:59)
--- NOTE | 2022-09-05 14:00 | P.CNPUL ---
History of Present Illness Consult date: 09/05/22 Requesting physician: Lauren Haywood Reason for consult: dyspnea, cough, hypoxemia, pneumonia, abnormal CXR/CT Chief complaint: Pneumonia. History of present illness: Pulmonary consult dated 09/05/2022. 87-year-old male with a past medical history of dementia, prior heavy alcohol use, hyperlipidemia, and hypertension. The patient apparently became ill the Sunday after the first of the year. That would be August 23. The patient was placed on doxycycline by his primary care physician, for an upper respiratory tract infection. According to his daughter, he initially seemed to get better, but then got worse again. He started complaining of right ear and right throat pain, and he was brought back to his family doctor's office where Tylenol was recommended. Finally, because of weakness, cough, shortness of breath, and generally just not feeling well, the patient was brought back to the emergency room, on the , to be evaluated. Patient was seen, and admitted with a diagnosis of bilateral pneumonia. Currently he is on 3 L of oxygen. He doesn't use oxygen at home typically. In addition, he was getting saline at 100 mL an hour. The patient also had coronavirus infection right around the holidays as well. Doesn't sound like he was too sick from that. He wasn't hospitalized. Currently his white count is 10.4, hemoglobin 8.3, hematocrit 25.5, and platelet count 278,000. D-dimer was 19.77. PT 12.5. Sodium 138, potassium 4.3, chlorides 109, CO2 25, BUN 32, and creatinine 1.20. Troponins are 0.257 0.216 0.224. Urine was negative. He did test positive for coron avirus. Chest x-ray showed bilateral pneumonia, more right-sided than left. CT angiogram was negative for PE, and also some evidence of bilateral pneumonia, right greater than left. Venous Doppler showed a occlusive DVT in the distal popliteal vein. According to the daughter, who is the medical power of privacy attorney, the patient is a DO NOT RESUSCITATE patient. Review of Systems REVIEW OF SYSTEMS: CONSTITUTIONAL: Weakness. NEUROLOGIC: [ Negative.] HEENT: Throat and right ear pain. CARDIAC: [Negative.] PULMONARY: Shortness of breath, and cough. GI: Very poor appetite. : [Negative.] RHEUMATOLOGIC: [ Negative.] IMMUNOLOGIC: [ Negative.] ENDOCRINE: [Negative. ] DERMATOLOGIC: [Negative.] Past Medical History Past Medical History: Dementia, Deep Vein Thrombosis (DVT), Eye Disorder, GERD/Reflux, Myocardial Infarction ([place]), Pneumonia Additional Past Medical History / Comment(s): DVT in legs, cateract removed right eye, restless leg syndrome. Last Myocardial Infarction Date:: 12/01/18 History of Any Multi-Drug Resistant Organisms: None Reported Past Surgical History: Heart Catheterization With Stent, Hernia Repair, Joint Replacement, Orthopedic Surgery Additional Past Surgical History / Comment(s): Bilat knee replacement, rotator cuff surgery Past Anesthesia/Blood Transfusion Reactions: No Reported Reaction Date of Last Stent Placement:: 12/01/18 Past Psychological History: No Psychological Hx Reported Past Alcohol Use History: Daily Past Drug Use History: Marijuana - Past Family History Brother(s) Family Medical History: Cancer Father History Unknown: Yes Medications and Allergies Home Medications Medication Instructions Recorded Confirmed Type Memantine HCl [Memantine HCl ER] 21 mg PO DAILY 12/01/18 09/05/22 History Multivitamin,Therapeutic [Thera] 1 tab PO DAILY 12/01/18 09/05/22 History Omeprazole 20 mg PO DAILY 12/01/18 09/05/22 History Clopidogrel [Plavix] 75 mg PO DAILY #30 tab 12/03/18 09/05/22 Rx Nitroglycerin Sl Tabs [Nitrostat] 0.4 mg SUBLINGUAL Q5M PRN #25 tab 12/03/18 09/05/22 Rx lisinopriL [Zestril] 10 mg PO DAILY #30 tab 12/03/18 09/05/22 Rx Ascorbic Acid [Vitamin C] 500 mg PO DAILY 09/05/22 09/05/22 History Cholecalciferol (Vitamin D3) 75 mcg PO DAILY 09/05/22 09/05/22 History [Vitamin D3 (3000 Iu)] Pramipexole [Mirapex] 1 mg PO BID 09/05/22 09/05/22 History Rivastigmine Tartrate 6 mg PO BID-W/MEALS 09/05/22 09/05/22 History [Rivastigmine] Ubidecarenone [Co Q-10] 400 mg PO DAILY 09/05/22 09/05/22 History Vitamin B Complex 1 cap PO DAILY 09/05/22 09/05/22 History Zinc Gluconate [Zinc] 50 mg PO DAILY 09/05/22 09/05/22 History Allergies Allergy/AdvReac Type Severity Reaction Status Date / Time No Known Allergies Allergy Verified 09/04/22 23:43 Physical Exam Osteopathic Statement: *. No significant issues noted on an osteopathic structural exam other than those noted in the History and Physical/Consult. Vitals: Vital Signs Temp Pulse Resp BP Pulse Ox 09/05/22 13:39 93 18 125/96 94 L 09/05/22 12:41 82 22 114/59 95 09/05/22 11:29 94 15 107/48 94 L 09/05/22 10:28 90 18 118/56 90 L 09/05/22 08:55 82 17 107/54 09/05/22 05:32 90 9 L 102/50 94 L 09/05/22 01:54 91 16 97 09/05/22 01:52 90 16 88 L 09/04/22 23:43 98.6 F 103 H 17 127/77 95 Intake and Output 09/04/22 09/05/22 09/05/22 22:59 06:59 14:59 Other: Weight 68.039 kg No acute distress, oriented 3. Very cachectic appearing. No pretty respiratory distress. HEENT examination is grossly unremarkable. Neck supple. Full range of motion. No adenopathy thyromegaly or neck vein distention. Cardiovascular examination reveals regular rhythm rate. S1-S2 normal. No S3 or S4. No discernible murmur noted. Heart rate 90 bpm. Heart sounds are distant. Lungs reveal scattered bilateral rhonchi. No wheezes. Minimal crackles. Breath sounds equal. 3 L saturation is 95%. Abdomen soft bowel sounds are heard. No masses or tenderness. Extremities are intact. No cyanosis clubbing or edema. Skin is without rash or lesion. Neurologic examination is brief but nonfocal. Results - Laboratory Findings CBC and BMP: 09/05/22 08:55 09/05/22 08:55 PT/INR, D-dimer PT 12.5 sec (9.0-12.0) H 09/05/22 00:48 INR 1.2 (<1.2) H 09/05/22 00:48 D-Dimer 19.77 mg/L FEU (<0.60) H 09/05/22 00:48 Abnormal lab findings: Abnormal Labs 09/05/22 09/05/22 09/05/22 00:48 00:48 00:48 WBC 16.3 H RBC 3.03 L Hgb 9.9 L Hct 29.5 L Neutrophils # 14.0 H PT 12.5 H INR 1.2 H D-Dimer 19.77 H Chloride BUN 37 H Creatinine 1.30 H Glucose 117 H Calcium Troponin I Total Protein 6.2 L Albumin 2.8 L Ur Specific [place] Urine Protein SARS-CoV-2 (PCR) 09/05/22 09/05/22 09/05/22 00:48 00:48 05:10 WBC RBC Hgb Hct Neutrophils # PT INR D-Dimer Chloride BUN Creatinine Glucose Calcium Troponin I 0.257 H* 0.216 H* Total Protein Albumin Ur Specific [place] Urine Protein SARS-CoV-2 (PCR) Detected A 09/05/22 09/05/22 09/05/22 08:55 08:55 08:55 WBC RBC 2.55 L Hgb 8.3 L D Hct 25.5 L Neutrophils # 8.1 H PT INR D-Dimer Chloride 109 H BUN 32 H Creatinine Glucose Calcium 7.8 L Troponin I 0.224 H* Total Protein Albumin Ur Specific [place] Urine Protein SARS-CoV-2 (PCR) 09/05/22 10:27 WBC RBC Hgb Hct Neutrophils # PT INR D-Dimer Chloride BUN Creatinine Glucose Calcium Troponin I Total Protein Albumin Ur Specific [place] 1.050 H Urine Protein Trace H SARS-CoV-2 (PCR) - Diagnostic Findings Chest x-ray: image reviewed CT scan - chest: image reviewed Assessment and Plan Assessment: Acute hypoxemic respiratory failure secondary to extensive bilateral pneumonia, right greater than left. Recent episode of coronavirus infection, not requiring hospitalization. Right lower extremity DVT. History of severe dementia. Prior history of myocardial infarction. History of GERD. CAD, status post catheterization with stent placement. Restless leg syndrome. Plan: Plan dated 09/05/2022. The patient is interviewed and examined. We spent a great deal time talking to the patient's daughter. The patient is a DO NOT RESUSCITATE patient. He's currently on 3 L. He is getting saline at 100 mL an hour. Recommended vancomycin and cefepime as antibiotics. Infectious disease DrYuri was consulted but hasn't yet seen the patient. We also recommend breathing treatments. Prognosis is certainly guarded. The patient is currently on a factor X a inhibitor for the right lower extremity DVT. Additional recommendations and suggestions are forthcoming Time with Patient: Greater than 30
--- NOTE | 2022-09-05 14:14 | P.CRDCN ---
History of Present Illness Consult date: 09/05/22 Reason for Consult (text): Elevated troponin History of present illness: History of present illness: This is an 87-year-old male patient of Dr. Dr. Arroyo with past medical history of coronary artery disease status post stenting of proximal mid LAD 11/2018, history of dementia, DVT, gastroesophageal reflux disease, hypertension, hyperlipidemia. Patient was last seen in the office on 04/23/2019. We have been asked to see the patient for elevated troponins. Family was doing well with only a little cough. By New Year's he was feeling worse. He had a chest x-ray done which showed a right-sided infiltrate per the family and he was placed on doxycycline for a 10 day course. He was better after that but not 100%. He continued to complain of right-sided ear and throat pain. Patient had chest pain when he coughed. He called the PCP office and recommended Tylenol and appointment was set up for today but patient became significantly worse yesterday and was brought into the emergency center as he continued to have a productive cough with green sputum, decreased appetite and oral intake. Patient is seen today in the emergency center waiting for a bed on the cardiac stepdown unit. EKG sinus rhythm with no acute changes WBC 16.3, hemoglobin 9.9, platelet count 199. D-dimer 19.7. BUN 37 creatinine 1.3. Troponin 0.257, 0.216, 0.224. Influenza A, influenza B, RSV and group A strep not detected. Covid 19 detected. Chest x-ray reveals bilateral pneumonia. Mild heart failure not excluded CTA of the chest showed no evidence of pulmonary embolism. Extensive bilateral pneumonia Echocardiogram 11/2018 revealed normal EF, mild MR, mild TR Carotid duplex 01/2020 revealed 16-49% bilateral carotid stenosis Home cardiac medications: Plavix 75 mg daily, lisinopril 10 mg daily Review Of Systems: Unable to obtain due to patient's mental status Physical examination: Gen: This is a frail cachectic appearing 87-year-old male. He is resting on the ER stretcher, minimally responsive VS: reviewed HEENT: Head is atraumatic, normocephalic. Pupils equal, round. Sclerae is anicteric. NECK: Supple. No JVD. No lymphadenopathy. No thyromegaly. LUNGS: Bilateral rhonchi. No intercostal retractions. HEART: Regular rate and rhythm. 2/6 systolic ejection murmur at the base. ABDOMEN: Soft. Bowel sounds are present. No masses. No tenderness. EXTREMITIES: No pedal edema. No calf tenderness. NEUROLOGICAL: Patient is lethargic. Assessment: Elevated troponins, possible non-ST elevated myocardial infarction Covid 19 Right lower extremity DVT Coronary artery disease status post stenting Dementia History of DVT Hypertension Hyperlipidemia Plan: Continue patient's cardiac medications No plan for aggressive cardiac workup Further recommendations to follow based upon clinical course Thank you kindly for this consultation. Nurse practitioner note has been reviewed, I agree with documented findings and plan of care. Patient was seen and examined. Past Medical History Past Medical History: Dementia, Deep Vein Thrombosis (DVT), Eye Disorder, GERD/Reflux, Myocardial Infarction ([place]), Pneumonia Additional Past Medical History / Comment(s): DVT in legs, cateract removed right eye, restless leg syndrome. Last Myocardial Infarction Date:: 12/01/18 History of Any Multi-Drug Resistant Organisms: None Reported Past Surgical History: Heart Catheterization With Stent, Hernia Repair, Joint Replacement, Orthopedic Surgery Additional Past Surgical History / Comment(s): Bilat knee replacement, rotator cuff surgery Past Anesthesia/Blood Transfusion Reactions: No Reported Reaction Date of Last Stent Placement:: 12/01/18 Past Psychological History: No Psychological Hx Reported Past Alcohol Use History: Daily Past Drug Use History: Marijuana - Past Family History Brother(s) Family Medical History: Cancer Father History Unknown: Yes Medications and Allergies Home Medications Medication Instructions Recorded Confirmed Type Memantine HCl [Memantine HCl ER] 21 mg PO DAILY 12/01/18 09/05/22 History Multivitamin,Therapeutic [Thera] 1 tab PO DAILY 12/01/18 09/05/22 History Omeprazole 20 mg PO DAILY 12/01/18 09/05/22 History Clopidogrel [Plavix] 75 mg PO DAILY #30 tab 12/03/18 09/05/22 Rx Nitroglycerin Sl Tabs [Nitrostat] 0.4 mg SUBLINGUAL Q5M PRN #25 tab 12/03/18 09/05/22 Rx lisinopriL [Zestril] 10 mg PO DAILY #30 tab 12/03/18 09/05/22 Rx Ascorbic Acid [Vitamin C] 500 mg PO DAILY 09/05/22 09/05/22 History Cholecalciferol (Vitamin D3) 75 mcg PO DAILY 09/05/22 09/05/22 History [Vitamin D3 (3000 Iu)] Pramipexole [Mirapex] 1 mg PO BID 09/05/22 09/05/22 History Rivastigmine Tartrate 6 mg PO BID-W/MEALS 09/05/22 09/05/22 History [Rivastigmine] Ubidecarenone [Co Q-10] 400 mg PO DAILY 09/05/22 09/05/22 History Vitamin B Complex 1 cap PO DAILY 09/05/22 09/05/22 History Zinc Gluconate [Zinc] 50 mg PO DAILY 09/05/22 09/05/22 History Allergies Allergy/AdvReac Type Severity Reaction Status Date / Time No Known Allergies Allergy Verified 09/04/22 23:43 Physical Exam Vitals: Vital Signs Temp Pulse Resp BP Pulse Ox 09/05/22 10:28 90 18 118/56 90 L 09/05/22 08:55 82 17 107/54 09/05/22 05:32 90 9 L 102/50 94 L 09/05/22 01:54 91 16 97 09/05/22 01:52 90 16 88 L 09/04/22 23:43 98.6 F 103 H 17 127/77 95 Intake and Output 09/04/22 09/05/22 09/05/22 22:59 06:59 14:59 Other: Weight 68.039 kg Results 09/05/22 08:55 09/05/22 08:55 Cardiac Enzymes 09/05/22 09/05/22 09/05/22 Range/Units 00:48 00:48 05:10 AST 26 (17-59) U/L Troponin I 0.257 H* 0.216 H* (0.000-0.034) ng/mL 09/05/22 Range/Units 08:55 AST (17-59) U/L Troponin I 0.224 H* (0.000-0.034) ng/mL Coagulation 09/05/22 Range/Units 00:48 PT 12.5 H (9.0-12.0) sec APTT 26.3 (22.0-30.0) sec CBC 09/05/22 09/05/22 Range/Units 00:48 08:55 WBC 16.3 H 10.4 (3.8-10.6) k/uL RBC 3.03 L 2.55 L (4.30-5.90) m/uL Hgb 9.9 L 8.3 L D (13.0-17.5) gm/dL Hct 29.5 L 25.5 L (39.0-53.0) % Plt Count 199 178 (150-450) k/uL Comprehensive Metabolic Panel 09/05/22 09/05/22 Range/Units 00:48 08:55 Sodium 138 138 (137-145) mmol/L Potassium 5.0 4.3 (3.5-5.1) mmol/L Chloride 105 109 H (98-107) mmol/L Carbon Dioxide 28 25 (22-30) mmol/L BUN 37 H 32 H (9-20) mg/dL Creatinine 1.30 H 1.20 (0.66-1.25) mg/dL Glucose 117 H 79 (74-99) mg/dL Calcium 9.1 7.8 L (8.4-10.2) mg/dL AST 26 (17-59) U/L ALT 17 (4-49) U/L Alkaline Phosphatase 83 (38-126) U/L Total Protein 6.2 L (6.3-8.2) g/dL Albumin 2.8 L (3.5-5.0) g/dL Current Medications Generic Name Dose Route Start Last Admin Trade Name Freq PRN Reason Stop Dose Admin Apixaban 10 mg 09/05/22 11:15 Apixaban 5 Mg Tab PO 09/11/22 21:01 BID [facility]IAN Protocol Aspirin 81 mg 09/05/22 09:00 09/05/22 09:46 Aspirin 81 Mg PO 81 mg DAILY [facility] Administration Atorvastatin Calcium 80 mg 09/05/22 21:00 Atorvastatin 80 Mg Tab PO HS [facility] Clopidogrel Bisulfate 75 mg 09/05/22 09:00 09/05/22 09:46 Clopidogrel 75 Mg Tab PO 75 mg DAILY [facility] Administration Sodium Chloride 1,000 mls @ 100 mls/hr 09/05/22 09:30 09/05/22 10:12 Saline 0.9% IV 100 mls/hr .Q10H [facility] Administration Ceftriaxone Sodium 2 gm/ 50 mls @ 100 mls/hr 09/05/22 11:01 Sodium Chloride IVPB 09/05/22 11:30 ONCE ONE Protocol Vancomycin HCl 1,250 mg/ 250 mls @ 125 mls/hr 09/05/22 12:00 Sodium Chloride IVPB Q24H [facility] Memantine 7.5 mg 09/05/22 09:00 09/05/22 09:46 Memantine 5 Mg Tab PO 7.5 mg BID [facility] Administration Metoprolol Tartrate 25 mg 09/05/22 09:00 09/05/22 10:12 Metoprolol Tartrate 25 Mg Tab PO Not Given BID [facility]IAN Naloxone HCl 0.2 mg 09/05/22 02:57 Naloxone 0.4 Mg/Ml 1 Ml Vial IV Q2M PRN Opioid Reversal Pantoprazole Sodium 40 mg 09/05/22 11:05 Pantoprazole 40 Mg Tablet PO DAILY PRN GI Upset Ropinirole HCl 1 mg 09/05/22 12:00 Ropinirole Hcl 1 Mg Tab PO BID@1200,1630 [facility]IAN Ropinirole HCl 2 mg 09/05/22 21:30 Ropinirole Hcl 1 Mg Tab PO HS@2130 [facility]IAN Intake and Output 09/04/22 09/05/22 09/05/22 22:59 06:59 14:59 Other: Weight 68.039 kg 09/05/22 08:55 09/05/22 08:55
[2022-09-05] MEDS: ALBUTEROL HFA INHALER INHALATION SCH ×2 (15:09→20:40)
[2022-09-05] MEDS ORDERED: ACETAMINOPHEN TAB 325 MG TAB PO PRN (15:46)
[2022-09-05] MEDS ORDERED: QUEtiapine 25 MG TAB PO PRN (15:49)
[2022-09-05] MEDS ORDERED: IPRATROPIUM-ALBUTEROL 3 ML NEB INHALATION SCH (16:00)
[2022-09-05] MEDS: CEFEPIME 2 GM in SODIUM CHLORIDE 0.9% 100 ML IVPB SCH (17:29)
[2022-09-05] MEDS ORDERED: ATORVASTATIN 80 MG TAB PO SCH (21:00)
[2022-09-05 21:33] LABS: ABG HCO3 24 mmol/L (21-25); ABG Oxygen Saturation 96.7 % (94-97); ABG PCO2 33 mmHg (35-45); ABG PH 7.47 (7.35-7.45); ABG PO2 77 mmHg (83-108); ABG TCO2 25 mmol/L (19-24); Allen Test Performed? Yes
[2022-09-05 21:44] VITALS: TEMP 98.2
--- NOTE | 2022-09-05 22:13 | P.CONS ---
History of Present Illness - Reason for Consult Consult date: 09/05/22 pneumonia Requesting physician: Fabiola Pineda - Chief Complaint weakness and shortness of breath x few days - History of Present Illness Patient is a 87-year-old male with a past medical history significant for dementia, hyperlipidemia hypertension, patient did apparently diagnosed with a covid [address] and apparently has been treated patient seemed to have recovered patient subsequently did have more respiratory symptoms and was evaluated by PCP and has been treated with oral doxycycline patient has not been brought to the ER for evaluation of generalized weakness getting worse for the last few days also complaining of increasing shortness of breath and the patient did have a cough mild to moderate intensity during of some sputum not clear about the color no pleuritic chest pain no nausea no vomiting no children. No abdominal pain or any diarrhea with these symptoms the patient was evaluated by the ER physician on arrival to the ER patient did have a CT angiogram of the chest was negative for PE however did shows extensive pneumoniag patient also have a right lower extremity DVT on Doppler ultrasound patient did have what was 16,000 with a left shift low-grade fever of 99F the patient was hypoxic with O2 sats of 88% and is currently on high flow oxygen patient was started on vancomycin and Rocephin and infectious disease was consulted for further management of antibiotic therapy most information has been obtained from the and son at the bedside and the patient did answer some questions Review of Systems Positive point has been mentioned in the HPI rest of the systems are negative Past Medical History Past Medical History: Dementia, Deep Vein Thrombosis (DVT), Eye Disorder, GERD/Reflux, Myocardial Infarction ([place]), Pneumonia Additional Past Medical History / Comment(s): DVT in legs, cateract removed right eye, restless leg syndrome. Last Myocardial Infarction Date:: 12/01/18 History of Any Multi-Drug Resistant Organisms: None Reported Past Surgical History: Heart Catheterization With Stent, Hernia Repair, Joint Replacement, Orthopedic Surgery Additional Past Surgical History / Comment(s): Bilat knee replacement, rotator cuff surgery Past Anesthesia/Blood Transfusion Reactions: No Reported Reaction Date of Last Stent Placement:: 12/01/18 Past Psychological History: No Psychological Hx Reported Past Alcohol Use History: Daily Past Drug Use History: Marijuana - Past Family History Brother(s) Family Medical History: Cancer Father History Unknown: Yes Medications and Allergies Home Medications Medication Instructions Recorded Confirmed Type Memantine HCl [Memantine HCl ER] 21 mg PO DAILY 12/01/18 09/05/22 History Multivitamin,Therapeutic [Thera] 1 tab PO DAILY 12/01/18 09/05/22 History Omeprazole 20 mg PO DAILY 12/01/18 09/05/22 History Clopidogrel [Plavix] 75 mg PO DAILY #30 tab 12/03/18 09/05/22 Rx Nitroglycerin Sl Tabs [Nitrostat] 0.4 mg SUBLINGUAL Q5M PRN #25 tab 12/03/18 09/05/22 Rx lisinopriL [Zestril] 10 mg PO DAILY #30 tab 12/03/18 09/05/22 Rx Ascorbic Acid [Vitamin C] 500 mg PO DAILY 09/05/22 09/05/22 History Cholecalciferol (Vitamin D3) 75 mcg PO DAILY 09/05/22 09/05/22 History [Vitamin D3 (3000 Iu)] Pramipexole [Mirapex] 1 mg PO BID 09/05/22 09/05/22 History Rivastigmine Tartrate 6 mg PO BID-W/MEALS 09/05/22 09/05/22 History [Rivastigmine] Ubidecarenone [Co Q-10] 400 mg PO DAILY 09/05/22 09/05/22 History Vitamin B Complex 1 cap PO DAILY 09/05/22 09/05/22 History Zinc Gluconate [Zinc] 50 mg PO DAILY 09/05/22 09/05/22 History Allergies Allergy/AdvReac Type Severity Reaction Status Date / Time No Known Allergies Allergy Verified 09/04/22 23:43 Physical Exam Vitals: Vital Signs Temp Pulse Resp BP Pulse Ox 09/05/22 11:29 94 15 107/48 94 L 09/05/22 10:28 90 18 118/56 90 L 09/05/22 08:55 82 17 107/54 09/05/22 05:32 90 9 L 102/50 94 L 09/05/22 01:54 91 16 97 09/05/22 01:52 90 16 88 L 09/04/22 23:43 98.6 F 103 H 17 127/77 95 Intake and Output 09/04/22 09/05/22 09/05/22 22:59 06:59 14:59 Other: Weight 68.039 kg GENERAL DESCRIPTION: Elderly male lying in bed, no distress. No tachypnea or accessory muscle of respiration use. HEENT: Shows Pallor , no scleral icterus. Oral mucous membrane is dry. No pharyngeal erythema or thrush NECK: Trachea central, no thyromegaly. LUNGS: Unlabored breathing. coarse breath sounds at base HEART: S1, S2, regular rate and rhythm. No loud murmur ABDOMEN: Soft, no tenderness , guarding or rigidity, no organomegaly EXTREMITIES: No edema of feet. SKIN: No rash, no masses palpable. NEUROLOGICAL: The patient is awake, alert, oriented x3, mood and affect normal. Results CBC & Chem 7: 09/05/22 08:55 09/05/22 08:55 Labs: Abnormal Lab Results - Last 24 Hours (Table) 09/05/22 09/05/22 09/05/22 Range/Units 00:48 00:48 00:48 WBC 16.3 H (3.8-10.6) k/uL RBC 3.03 L (4.30-5.90) m/uL Hgb 9.9 L (13.0-17.5) gm/dL Hct 29.5 L (39.0-53.0) % Neutrophils # 14.0 H (1.3-7.7) k/uL PT 12.5 H (9.0-12.0) sec INR 1.2 H (<1.2) D-Dimer 19.77 H (<0.60) mg/L FEU Chloride (98-107) mmol/L BUN 37 H (9-20) mg/dL Creatinine 1.30 H (0.66-1.25) mg/dL Glucose 117 H (74-99) mg/dL Calcium (8.4-10.2) mg/dL Troponin I (0.000-0.034) ng/mL Total Protein 6.2 L (6.3-8.2) g/dL Albumin 2.8 L (3.5-5.0) g/dL Ur Specific [place] (1.001-1.035) Urine Protein (Negative) SARS-CoV-2 (PCR) (Not Detectd) 09/05/22 09/05/22 09/05/22 Range/Units 00:48 00:48 05:10 WBC (3.8-10.6) k/uL RBC (4.30-5.90) m/uL Hgb (13.0-17.5) gm/dL Hct (39.0-53.0) % Neutrophils # (1.3-7.7) k/uL PT (9.0-12.0) sec INR (<1.2) D-Dimer (<0.60) mg/L FEU Chloride (98-107) mmol/L BUN (9-20) mg/dL Creatinine (0.66-1.25) mg/dL Glucose (74-99) mg/dL Calcium (8.4-10.2) mg/dL Troponin I 0.257 H* 0.216 H* (0.000-0.034) ng/mL Total Protein (6.3-8.2) g/dL Albumin (3.5-5.0) g/dL Ur Specific [place] (1.001-1.035) Urine Protein (Negative) SARS-CoV-2 (PCR) Detected A (Not Detectd) 09/05/22 09/05/22 09/05/22 Range/Units 08:55 08:55 08:55 WBC (3.8-10.6) k/uL RBC 2.55 L (4.30-5.90) m/uL Hgb 8.3 L D (13.0-17.5) gm/dL Hct 25.5 L (39.0-53.0) % Neutrophils # 8.1 H (1.3-7.7) k/uL PT (9.0-12.0) sec INR (<1.2) D-Dimer (<0.60) mg/L FEU Chloride 109 H (98-107) mmol/L BUN 32 H (9-20) mg/dL Creatinine (0.66-1.25) mg/dL Glucose (74-99) mg/dL Calcium 7.8 L (8.4-10.2) mg/dL Troponin I 0.224 H* (0.000-0.034) ng/mL Total Protein (6.3-8.2) g/dL Albumin (3.5-5.0) g/dL Ur Specific [place] (1.001-1.035) Urine Protein (Negative) SARS-CoV-2 (PCR) (Not Detectd) 09/05/22 Range/Units 10:27 WBC (3.8-10.6) k/uL RBC (4.30-5.90) m/uL Hgb (13.0-17.5) gm/dL Hct (39.0-53.0) % Neutrophils # (1.3-7.7) k/uL PT (9.0-12.0) sec INR (<1.2) D-Dimer (<0.60) mg/L FEU Chloride (98-107) mmol/L BUN (9-20) mg/dL Creatinine (0.66-1.25) mg/dL Glucose (74-99) mg/dL Calcium (8.4-10.2) mg/dL Troponin I (0.000-0.034) ng/mL Total Protein (6.3-8.2) g/dL Albumin (3.5-5.0) g/dL Ur Specific [place] 1.050 H (1.001-1.035) Urine Protein Trace H (Negative) SARS-CoV-2 (PCR) (Not Detectd) Assessment and Plan (1) Pneumonia Status: Acute Code(s): J18.9 - PNEUMONIA, UNSPECIFIED ORGANISM SNOMED Code(s): 321721556 Plan: 1patient is in the hospital with increasing shortness of breath and weakness in this patient with extensive pneumonia and the patient recently did have a covid 19 infection concerning for post Covid pneumonia and will need to cover for the resistant gram-positive as well as gram-negative 2-we'll obtain sputum for Gram stain and culture and check pro-calcitonin level she 3-patient to continue with the vancomycin and cefepime while waiting for the cultures to finalize We will follow on clinical condition and cultures to further adjust medication if needed Thank you for this consultation will follow this patient with you Time with Patient: Greater than 30
[2022-09-06 00:54] LABS: Glucose,Whole Blood 167 mg/dL (70-110)
[2022-09-06] MEDS ORDERED: LORazepam 2 MG/ML INJ IV STA (01:08)
[2022-09-06] MEDS ORDERED: ATROPINE OPHTH SOLN 1% 5ML BTL SUBLINGUAL PRN (01:38)
[2022-09-06] MEDS: MORPHINE SULFATE (100 MG/2 ML) 100 MG in SODIUM CHLORIDE 0.9% 100 ML IV SCH ×2 (01:53→04:12)
[2022-09-06] MEDS: APIXABAN 5 MG TAB PO SCH (01:53)
[2022-09-06] MEDS: MEMANTINE 5 MG TAB PO SCH (01:54)
[2022-09-06] MEDS: METOPROLOL TARTRATE 25 MG TAB PO SCH (01:54)
[2022-09-06] MEDS ORDERED: SCOPOLAMINE 1 MG/72 HR PATCH TRANSDERM SCH (02:00)
[2022-09-06 03:51] VITALS: RESP 37
[2022-09-06 04:07] VITALS: BP 89/49; PULSE 130
[2022-09-06] MEDS: CEFEPIME 2 GM in SODIUM CHLORIDE 0.9% 100 ML IVPB SCH (05:55)
[2022-09-06] MEDS: SODIUM CHLORIDE 0.9% 1,000 ML IV SCH (05:55)
[2022-09-06] MEDS: ALBUTEROL HFA INHALER INHALATION SCH (08:07)
--- NOTE | 2022-09-06 12:02 | P.DS ---
Providers Date of admission: 09/05/22 03:02 Attending physician: Lauren Haywood Consults: 09/05/22 02:57 Consult Physician Routine Consulting Provider: [facility] Consult Reason/Comments: elevated troponin, likely from pneumonia Do you want consulting provider notified?: Yes, Notify in am 09/05/22 09:19 Consult Physician Routine Consulting Provider: Jamil Schneider Consult Reason/Comments: right leg DVT Acute/occlusive Do you want consulting provider notified?: Yes 09/05/22 11:03 Consult Physician Routine Consulting Provider: Eliot Zarate Consult Reason/Comments: Pneumonia Do you want consulting provider notified?: Yes Consult Physician Routine Consulting Provider: Lisbet Rendon Consult Reason/Comments: Pneumonia Do you want consulting provider notified?: Yes Primary care physician: Torito Hong [facility] Course: Patient's overall clinical condition worsens and after multiple discussions with family family later decided to make patient hospice patient respiratory status has worsened and was on BiPAP he did please refer to nursing documentation for time of . Patient is admitted for extensive pneumonia in the right middle and lower lobes and left lower lobe. Patient had post viral pneumonia patient had a recent COVID-19 infection because of which patient was started on vancomycin and Rocephin. Patient also had right lower extremity DVT without any coronary embolism. Please refer to my HPI from yesterday for further details of hospitalization and other medical problems Patient Condition at Discharge: Serious Plan - Discharge Summary Discharge Rx Participant: No New Discharge Prescriptions: No Action Memantine HCl [Memantine HCl ER] 21 mg PO DAILY Omeprazole 20 mg PO DAILY Multivitamin,Therapeutic [Thera] 1 tab PO DAILY Nitroglycerin Sl Tabs [Nitrostat] 0.4 mg SUBLINGUAL Q5M PRN #25 tab PRN Reason: Chest Pain Clopidogrel [Plavix] 75 mg PO DAILY #30 tab lisinopriL [Zestril] 10 mg PO DAILY #30 tab Cholecalciferol (Vitamin D3) [Vitamin D3 (3000 Iu)] 75 mcg PO DAILY Pramipexole [Mirapex] 1 mg PO BID Rivastigmine Tartrate [Rivastigmine] 6 mg PO BID-W/MEALS Ubidecarenone [Co Q-10] 400 mg PO DAILY Vitamin B Complex 1 cap PO DAILY Zinc Gluconate [Zinc] 50 mg PO DAILY Ascorbic Acid [Vitamin C] 500 mg PO DAILY Discharge Medication List Memantine HCl [Memantine HCl ER] 21 mg PO DAILY 12/01/18 [History] Multivitamin,Therapeutic [Thera] 1 tab PO DAILY 12/01/18 [History] Omeprazole 20 mg PO DAILY 12/01/18 [History] Clopidogrel [Plavix] 75 mg PO DAILY #30 tab 12/03/18 [Rx] Nitroglycerin Sl Tabs [Nitrostat] 0.4 mg SUBLINGUAL Q5M PRN #25 tab 12/03/18 [Rx] lisinopriL [Zestril] 10 mg PO DAILY #30 tab 12/03/18 [Rx] Ascorbic Acid [Vitamin C] 500 mg PO DAILY 09/05/22 [History] Cholecalciferol (Vitamin D3) [Vitamin D3 (3000 Iu)] 75 mcg PO DAILY 09/05/22 [History] Pramipexole [Mirapex] 1 mg PO BID 09/05/22 [History] Rivastigmine Tartrate [Rivastigmine] 6 mg PO BID-W/MEALS 09/05/22 [History] Ubidecarenone [Co Q-10] 400 mg PO DAILY 09/05/22 [History] Vitamin B Complex 1 cap PO DAILY 09/05/22 [History] Zinc Gluconate [Zinc] 50 mg PO DAILY 09/05/22 [History] Follow up Appointment(s)/Referral(s): Best Hogan DO [STAFF PHYSICIAN] - 2 Weeks Torito Hong MD [Primary Care Provider] - 1-2 days Discharge Disposition: - Preliminary Cause of Preliminary Cause of : Bacterial pneumonia, recent COVID-19 infection
== END 2022-09-06 11:10 | disposition expired | DRG 871 ==
LOC: EC 23:17 → 3SCARD 09-05 03:02 → 2SICU 09-06 01:08
PROVIDERS: ADMIT Hospitalist; ATTEND Hospitalist
PROC: 5A09357 Assistance with Respiratory Ventilation, Less than 24 Consecutive Hours, Continuous Positive Airway Pressure (ICD-10-PCS; principal; 2022-09-06)
DX: A41.89 Other specified sepsis (principal); J12.82 Pneumonia due to coronavirus disease 2019; J15.29 Pneumonia due to other staphylococcus; J96.01 Acute respiratory failure with hypoxia; U07.1 COVID-19; I82.431 Acute embolism and thrombosis of right popliteal vein; N17.9 Acute kidney failure, unspecified; R64 Cachexia; J44.0 Chronic obstructive pulmonary disease with (acute) lower respiratory infection; I11.0 Hypertensive heart disease with heart failure; I50.9 Heart failure, unspecified; G25.81 Restless legs syndrome; F10.11 Alcohol abuse, in remission; F03.C0 Unspecified dementia, severe, without behavioral disturbance, psychotic disturbance, mood disturbance, and anxiety; D64.9 Anemia, unspecified; Z66 Do not resuscitate; Z51.5 Encounter for palliative care; R00.0 Tachycardia, unspecified; K21.9 Gastro-esophageal reflux disease without esophagitis; R13.10 Dysphagia, unspecified; I25.10 Atherosclerotic heart disease of native coronary artery without angina pectoris; H92.01 Otalgia, right ear; E86.0 Dehydration; E78.5 Hyperlipidemia, unspecified; Z96.653 Presence of artificial knee joint, bilateral; I25.2 Old myocardial infarction; Z86.718 Personal history of other venous thrombosis and embolism; Z79.899 Other long term (current) drug therapy; Z79.02 Long term (current) use of antithrombotics/antiplatelets; Z79.82 Long term (current) use of aspirin; Z95.5 Presence of coronary angioplasty implant and graft; Z68.21 Body mass index [BMI] 21.0-21.9, adult
CPT/HCPCS: 36415; 36600; 71046; 71275; 80048; 80053; 81003; 82805; 83605; 83735; 83880; 84145; 84484; 85025; 85379; 85610; 85730; 87040; 87636; 87651; 93005; 93970; 94640; 94660; 96361; 96365; 96366; 96367; 96372; 96375; 99291